=== PATIENT | female | born 1960 | race Caucasian/White ===

== ENCOUNTER 2017-02-03 14:45 | Emergency (ER) | payer MEDICARE, MEDICAID ==
--- NOTE | 2017-02-03 15:08 | EDM.PDOC ---
ED HPI GI/ABDOMINAL - General Chief Complaint: Abdominal Pain Stated Complaint: VOMITTING, HEADACHE Time Seen by Provider: 02/03/17 14:45 Source: Reports: Patient History Limitations: Reports: Physical impairment - History of Present Illness INITIAL COMMENTS - FREE TEXT/NARRATIVE: 56 y.o.w.f. with a h/o DM, Maryam daily 2009, obesity, came to the ed because she "does not feel well" and has intermittent left lower abd. pain. She feels nauseated as well intermittently. No trauma, no blood in stool, has occ a dry cough. No F/C. Pt stated she "tries to walk daily". Symptom Onset Date: 02/02/17 Symptom Onset Time: 16:00 Timing/Duration: Reports: Day(s):, Intermittent Location: LLQ Quality: Reports: ache, stabbing, throbbing Severity: moderate Improves with: Reports: lying down Worsens with: Reports: sitting up Associated Symptoms (-Female): Reports: nausea/vomiting - Related Data Allergies/ADRs: Allergies Allergy/AdvReac Type Severity Reaction Status Date / Time hydrocodone Allergy Hives Verified 02/03/17 15:04 Penicillins Allergy Hives Verified 02/03/17 15:04 Sulfa (Sulfonamide Allergy Edema Verified 02/03/17 15:04 Antibiotics) TAPE Allergy Rash Uncoded 02/03/17 15:04 Home Meds: Home Meds Cyanocobalamin (Vitamin B12) [Vitamin B12] 500 mcg PO DAILY 08/11/13 [History] DULoxetine [Cymbalta] 120 mg PO DAILY 08/11/13 [History] FA/Lycopene/Lut/MV,Ca,Iron,Min [Centrum] 1 tab PO DAILY 08/11/13 [History] Gabapentin 800 mg PO DAILY 08/11/13 [History] Omeprazole 20 mg PO DAILY 08/11/13 [History] Cholecalciferol (Vitamin D3) [Vitamin D3] 5,000 unit PO DAILY 07/07/14 [History] Ciprofloxacin/Ciprofloxa HCl [Ciprofloxacin ER] 500 mg PO BID #20 tab 02/03/17 [ Rx] Dicyclomine [Bentyl] 10 mg PO QID PRN #16 cap 02/03/17 [Rx] Ondansetron [Zofran ODT] 4 mg PO Q6H PRN #20 tab 02/03/17 [Rx] Social & Family History - Tobacco Use Smoking Status *Q: Current Every Day Smoker Years of Tobacco use: 35 - Alcohol Use Days Per Week of Alcohol Use: 0 - Recreational Drug Use Recreational Drug Use: No ED ROS GENERAL - Review of Systems Review Of Systems: See Below Constitutional: Reports: decreased appetite HEENT: Reports: No symptoms Respiratory: Reports: Cough Cardiovascular: Reports: No symptoms Endocrine: Reports: no symptoms GI/Abdominal: Reports: Abdominal pain (LLQ) : Reports: no symptoms Musculoskeletal: Reports: no symptoms Skin: Reports: no symptoms Neurological: Reports: No Symptoms Psychiatric: Reports: No symptoms Hematologic/Lymphatic: Reports: no symptoms Immunologic: Reports: no symptoms ED EXAM, GI/ABD - Physical Exam Exam: See Below Exam Limited By: Physical impairment General Appearance: alert, WD/WN, moderate distress, obese Eyes: bilateral: normal appearance Ears: normal external exam Nose: normal inspection Throat/Mouth: Normal inspection, Normal lips, Normal oropharynx, Normal voice, No airway compromise Head: atraumatic, normocephalic Neck: normal inspection, supple, non-tender, full range of motion Respiratory/Chest: no accessory muscle use, chest non-tender, rhonchi Cardiovascular: normal peripheral pulses, regular rate, rhythm GI/Abdominal: hypoactive bowel sounds, tenderness (LLQ ) (Female) Exam: Deferred Rectal (Female) Exam: Deferred Back Exam: normal inspection, decreased range of motion, paraspinal tenderness ( chronic low back pain) Extremities: other (chronic lymphedema Rishabh, R > then left) Neurological: alert, oriented, CN II-XII intact, normal cognition Psychiatric: normal affect, normal mood Skin Exam: Warm, Dry, Intact Lymphatic: no adenopathy Course - Vital Signs Text/Narrative:: 56 y.o.w.f. with a h/o DM, Maryam tug 2009, obesity, came to the ed because she "does not feel well" and has intermittent left lower abd. pain. She feels nauseated as well intermittently. No trauma, no blood in stool, has occ a dry cough. No F/C. Pt stated she "tries to walk daily". PE: Morbid obese, Rishabh lympedema, Rhonchi LLL of lung, tender LLQ of abdomen. Labs. WBC 13L UA neg Imaging: abd/pelvis: Diverticulosis, opacity LLL of lung Impression: Diverticulosis, opacity LLL of lung Tx: Zofran, Dilaudid, Cipro (opacity). Reexam: Improved Plan: D/C home with instructions. Last Recorded V/S: Last Vital Signs Temp 37.3 C 02/03/17 18:22 Pulse 95 02/03/17 18:22 Resp 16 02/03/17 18:22 BP 122/66 02/03/17 18:22 Pulse Ox 95 02/03/17 18:22 - Orders/Labs/Meds Orders: Active Orders 24 hr Category Date Time Status Abdomen Pelvis w Cont [CT] Stat Exams 02/03/17 16:11 Taken Chest 2V [CR] Stat Exams 02/03/17 14:52 Taken Labs: Laboratory Tests 02/03/17 02/03/17 02/03/17 Range/Units 15:05 15:05 15:05 WBC 13.4 H (4.5-12.0) X10-3/uL RBC 5.09 (3.23-5.20) x10(6)uL Hgb 15.2 (11.5-15.5) g/dL Hct 45.5 (30.0-51.3) % MCV 89.2 (80-96) fL MCH 29.9 (27.7-33.6) pg MCHC 33.5 (32.2-35.4) g/dL RDW 12.6 (11.5-15.5) % Plt Count 235 (125-369) X10(3)uL MPV 8.4 (7.4-10.4) fL Add Manual Diff Yes Neutrophils % (Manual) 89 H (46-82) % Band Neutrophils % 2 (0-6) % Lymphocytes % (Manual) 7 L (13-37) % Monocytes % (Manual) 2 L (4-12) % Sodium 135 (135-145) mmol/L Potassium 4.1 (3.5-5.3) mmol/L Chloride 103 (100-110) mmol/L Carbon Dioxide 23 (23-29) mmol/L BUN 11 (5-20) mg/dL Creatinine 0.6 (0.6-1.3) mg/dL Est Cr Clr Drug Dosing 92.56 mL/min Estimated GFR (MDRD) > 60 (>60) BUN/Creatinine Ratio 18.3 (9-20) Glucose 115 (80-116) mg/dL Hemoglobin A1c (4.0-6.0) % Lactic Acid 2.2 (0.5-2.2) mmol/L Calcium 8.6 (8.6-10.2) mg/dL Total Bilirubin (0.1-1.3) mg/dL Direct Bilirubin (0.1-0.2) mg/dL AST (5-27) IU/L ALT (14-26) IU/L Alkaline Phosphatase (56-112) IU/L B-Natriuretic Peptide (0-100) pg/mL Total Protein (6.0-8.0) g/dL Albumin (3.5-5.2) g/dL Amylase (28-100) U/L Urine Color (YELLOW) Urine Appearance (CLEAR) Urine pH (5.0-6.5) Ur Specific Mcroberts (1.010-1.025) Urine Protein (NEGATIVE) mg/dL Urine Glucose (UA) (NEGATIVE) mg/dL Urine Ketones (NEGATIVE) mg/dL Urine Occult Blood (NEGATIVE) Urine Nitrite (NEGATIVE) Urine Bilirubin (NEGATIVE) Urine Urobilinogen (NEGATIVE) mg/dL Ur Leukocyte Esterase (NEGATIVE) Urine RBC (0) Urine WBC (0) Ur Squamous Epith Cells (NS,R,O) Other Crystals (NS) Urine Bacteria (NS) 02/03/17 02/03/17 02/03/17 Range/Units 15:05 15:05 15:05 WBC (4.5-12.0) X10-3/uL RBC (3.23-5.20) x10(6)uL Hgb (11.5-15.5) g/dL Hct (30.0-51.3) % MCV (80-96) fL MCH (27.7-33.6) pg MCHC (32.2-35.4) g/dL RDW (11.5-15.5) % Plt Count (125-369) X10(3)uL MPV (7.4-10.4) fL Add Manual Diff Neutrophils % (Manual) (46-82) % Band Neutrophils % (0-6) % Lymphocytes % (Manual) (13-37) % Monocytes % (Manual) (4-12) % Sodium (135-145) mmol/L Potassium (3.5-5.3) mmol/L Chloride (100-110) mmol/L Carbon Dioxide (23-29) mmol/L BUN (5-20) mg/dL Creatinine (0.6-1.3) mg/dL Est Cr Clr Drug Dosing mL/min Estimated GFR (MDRD) (>60) BUN/Creatinine Ratio (9-20) Glucose (80-116) mg/dL Hemoglobin A1c 5.6 (4.0-6.0) % Lactic Acid (0.5-2.2) mmol/L Calcium (8.6-10.2) mg/dL Total Bilirubin 1.3 (0.1-1.3) mg/dL Direct Bilirubin 0.2 (0.1-0.2) mg/dL AST 26 (5-27) IU/L ALT 20 (14-26) IU/L Alkaline Phosphatase 121 H (56-112) IU/L B-Natriuretic Peptide 48 (0-100) pg/mL Total Protein 7.1 (6.0-8.0) g/dL Albumin 3.6 (3.5-5.2) g/dL Amylase 56 (28-100) U/L Urine Color (YELLOW) Urine Appearance (CLEAR) Urine pH (5.0-6.5) Ur Specific Mcroberts (1.010-1.025) Urine Protein (NEGATIVE) mg/dL Urine Glucose (UA) (NEGATIVE) mg/dL Urine Ketones (NEGATIVE) mg/dL Urine Occult Blood (NEGATIVE) Urine Nitrite (NEGATIVE) Urine Bilirubin (NEGATIVE) Urine Urobilinogen (NEGATIVE) mg/dL Ur Leukocyte Esterase (NEGATIVE) Urine RBC (0) Urine WBC (0) Ur Squamous Epith Cells (NS,R,O) Other Crystals (NS) Urine Bacteria (NS) 02/03/17 Range/Units 15:28 WBC (4.5-12.0) X10-3/uL RBC (3.23-5.20) x10(6)uL Hgb (11.5-15.5) g/dL Hct (30.0-51.3) % MCV (80-96) fL MCH (27.7-33.6) pg MCHC (32.2-35.4) g/dL RDW (11.5-15.5) % Plt Count (125-369) X10(3)uL MPV (7.4-10.4) fL Add Manual Diff Neutrophils % (Manual) (46-82) % Band Neutrophils % (0-6) % Lymphocytes % (Manual) (13-37) % Monocytes % (Manual) (4-12) % Sodium (135-145) mmol/L Potassium (3.5-5.3) mmol/L Chloride (100-110) mmol/L Carbon Dioxide (23-29) mmol/L BUN (5-20) mg/dL Creatinine (0.6-1.3) mg/dL Est Cr Clr Drug Dosing mL/min Estimated GFR (MDRD) (>60) BUN/Creatinine Ratio (9-20) Glucose (80-116) mg/dL Hemoglobin A1c (4.0-6.0) % Lactic Acid (0.5-2.2) mmol/L Calcium (8.6-10.2) mg/dL Total Bilirubin (0.1-1.3) mg/dL Direct Bilirubin (0.1-0.2) mg/dL AST (5-27) IU/L ALT (14-26) IU/L Alkaline Phosphatase (56-112) IU/L B-Natriuretic Peptide (0-100) pg/mL Total Protein (6.0-8.0) g/dL Albumin (3.5-5.2) g/dL Amylase (28-100) U/L Urine Color Yellow (YELLOW) Urine Appearance Clear (CLEAR) Urine pH 6.0 (5.0-6.5) Ur Specific Mcroberts 1.020 (1.010-1.025) Urine Protein Negative (NEGATIVE) mg/dL Urine Glucose (UA) Normal (NEGATIVE) mg/dL Urine Ketones Negative (NEGATIVE) mg/dL Urine Occult Blood Negative (NEGATIVE) Urine Nitrite Negative (NEGATIVE) Urine Bilirubin Negative (NEGATIVE) Urine Urobilinogen Normal (NEGATIVE) mg/dL Ur Leukocyte Esterase Negative (NEGATIVE) Urine RBC Not seen (0) Urine WBC 0-5 (0) Ur Squamous Epith Cells Moderate H (NS,R,O) Other Crystals Moderate H (NS) Urine Bacteria Few H (NS) Meds: Medications Discontinued Medications Generic Name Dose Route Start Last Admin Trade Name Freq PRN Reason Stop Dose Admin Ciprofloxacin 500 mg 02/03/17 18:28 02/03/17 18:52 Ciprofloxacin Hcl PO 02/03/17 18:29 500 mg ONETIME ONE Administration Dicyclomine HCl Confirm 02/03/17 18:37 02/03/17 18:54 Bentyl Administered 02/03/17 18:38 Not Given Dose 10 mg .ROUTE .STK-MED ONE Dicyclomine HCl 10 mg 02/03/17 18:52 02/03/17 18:54 Bentyl PO 02/03/17 18:53 10 mg ONETIME ONE Administration Hydromorphone HCl 1 mg 02/03/17 16:29 02/03/17 16:52 Dilaudid IVPUSH 02/03/17 16:30 1 mg ONETIME ONE Administration Iopamidol 100 ml 02/03/17 16:22 02/03/17 17:13 Isovue-370 (76%) IV 02/03/17 16:23 100 ml . DIRECTED ONE Administration Ondansetron HCl 8 mg 02/03/17 16:29 02/03/17 16:52 Zofran IVPUSH 02/03/17 16:30 8 mg ONETIME ONE Administration Departure - Departure Time of Disposition: 18:18 Disposition: Home, Self-Care 01 Condition: good Clinical Impression: Opacity of lung on imaging study Diverticula of colon Qualifiers: Diverticulosis bleeding: diverticulosis without bleeding Qualified Code(s): K57.30 - Diverticulosis of large intestine without perforation or abscess without bleeding Prescriptions: Ciprofloxacin/Ciprofloxa HCl [Ciprofloxacin ER] 500 mg PO BID #20 tab Dicyclomine [Bentyl] 10 mg PO QID PRN #16 cap PRN Reason: abdominal spasm Ondansetron [Zofran ODT] 4 mg PO Q6H PRN #20 tab PRN Reason: Nausea Referrals: Chaz Mcdowell MD [Primary Care Provider] - Forms: ED Department Discharge Additional Instructions: Please take the meds as recommended, please f/u in next 3 days, please come back to the ed iof your symptoms get worse acutely. - My Orders Last 24 Hours: My Active Orders 02/03/17 14:52 Chest 2V [CR] Stat 02/03/17 16:11 Abdomen Pelvis w Cont [CT] Stat - Assessment/Plan Last 24 Hours: My Active Orders 02/03/17 14:52 Chest 2V [CR] Stat 02/03/17 16:11 Abdomen Pelvis w Cont [CT] Stat
[2017-02-03] MEDS ORDERED: Iopamidol 755 Mg/ML 100 ML Bottle IV ONE (16:22)
[2017-02-03] MEDS ORDERED: Ondansetron 4 MG/2 ML SDV IVPUSH ONE (16:29)
[2017-02-03] MEDS ORDERED: HYDROmorphone 2 MG/ML SDV IVPUSH ONE (16:29)
[2017-02-03 18:23] VITALS: BP 122/66
[2017-02-03] MEDS ORDERED: Ciprofloxacin 500 MG Tab PO ONE (18:28)
[2017-02-03] MEDS ORDERED: Ondansetron 4 MG Tab.DIS PO ONE (18:34)
[2017-02-03] MEDS ORDERED: Dicyclomine 10 MG Cap ONE (18:37)
[2017-02-03] MEDS ORDERED: Dicyclomine 10 MG Cap PO ONE (18:52)
--- NOTE | 2017-02-05 10:54 | CR ---
INDICATION: Cough and fever. CHEST: PA and lateral views of the chest were obtained 02/03/2017. The heart appeared enlarged in the area of the left ventricle. The aorta is calcified in the arch area slightly. Bridging hyperostotic changes are noted in the mid thoracic spine. Heavy markings are noted, most likely on the basis of pulmonary fibrosis, although unusual - interstitial pneumonia cannot be excluded. However, no consolidating pneumonia or effusion was identified. No definite evidence of CHF is identified. IMPRESSION: 1. ASHD with LVE 2. Exogenous obesity. 3. Probable pulmonary fibrosis, although cannot entirely exclude unusual pneumonia with interstitial inflammation. MTDD
== END 2017-02-03 18:55 | disposition home or self-care (01) ==
LOC: FB.ED 14:45
DX: K57.30 Diverticulosis of large intestine without perforation or abscess without bleeding (principal); R91.8 Other nonspecific abnormal finding of lung field; F17.200 Nicotine dependence, unspecified, uncomplicated; Z88.0 Allergy status to penicillin; Z88.2 Allergy status to sulfonamides; Z79.899 Other long term (current) drug therapy; Z88.5 Allergy status to narcotic agent; Z91.09 Other allergy status, other than to drugs and biological substances
CPT/HCPCS: 36415; 71020; 74177; 80048; 80076; 81001; 82150; 83036; 83605; 83880; 85025; 96374; 96375; 99284; A9270; J1170; J2405; Q9967

== ENCOUNTER 2017-06-10 12:51 | Emergency (ER) | payer MEDICARE, MEDICAID ==
[2017-06-10 13:14] VITALS: BP 148/84
--- NOTE | 2017-06-10 13:54 | EDM.PDOC ---
ED HPI GENERAL MEDICAL PROBLEM - General Chief Complaint: Lower Extremity Injury/Pain Stated Complaint: hip and leg pain Time Seen by Provider: 06/10/17 13:30 Source of Information: Reports: Patient, Old Records History Limitations: Reports: No Limitations - History of Present Illness INITIAL COMMENTS - FREE TEXT/NARRATIVE: Ankita comes in with a pain R hip and a known PMH of OA affecting the R hip. This has been studied radiographically, and an orthopedic referral was discussed. She is currently taking Toradol for pain, and is requesting an opioid. She is also taking Duloxitene and Gabapentin for chronic back pain and neuropathy. Treatments CV RN: Reports: Acetaminophen Right Hip Pain Score (Numeric/FACES): 10 - Related Data Allergies Allergy/AdvReac Type Severity Reaction Status Date / Time acetaminophen [From Percocet] Allergy Other Verified 06/10/17 13:29 hydrocodone Allergy Hives Verified 06/10/17 13:29 oxycodone [From Percocet] Allergy Other Verified 06/10/17 13:29 Penicillins Allergy Hives Verified 06/10/17 13:29 Sulfa (Sulfonamide Allergy Edema Verified 06/10/17 13:29 Antibiotics) TAPE Allergy Rash Uncoded 06/10/17 13:29 Home Meds: Home Meds Cyanocobalamin (Vitamin B12) [Vitamin B12] 500 mcg PO DAILY 08/11/13 [History] DULoxetine [Cymbalta] 120 mg PO DAILY 08/11/13 [History] FA/Lycopene/Lut/MV,Ca,Iron,Min [Centrum] 1 tab PO DAILY 08/11/13 [History] Gabapentin 800 mg PO DAILY 08/11/13 [History] Omeprazole 20 mg PO DAILY 08/11/13 [History] Cholecalciferol (Vitamin D3) [Vitamin D3] 5,000 unit PO DAILY 07/07/14 [History] Dicyclomine [Bentyl] 10 mg PO QID PRN #16 cap 02/03/17 [Rx] Ondansetron [Zofran ODT] 4 mg PO Q6H PRN #20 tab 02/03/17 [Rx] Past Medical History Cardiovascular History: Reports: Heart Failure Respiratory History: Reports: Pneumonia, Recurrent, Sleep Apnea, SOB Gastrointestinal History: Reports: GERD Genitourinary History: Reports: Renal Calculus MANAGER RADIATION History: Reports: Musculoskeletal History: Reports: Arthritis, Fracture Neurological History: Reports: Neuropathy, Peripheral Endocrine/Metabolic History: Reports: Obesity/BMI 30+, Vitamin D Deficiency Hematologic History: Reports: B12 Deficiency - Past Surgical History HEENT Surgical History: Reports: Tonsillectomy GI Surgical History: Reports: Bariatric Procedure, Cholecystectomy, Hernia, Abdominal Social & Family History - Family History Family Medical History: Noncontributory - Tobacco Use Smoking Status *Q: Current Every Day Smoker Years of Tobacco use: 35 Packs/Tins Daily: 1 Second Hand Smoke Exposure: Yes - Caffeine Use Caffeine Use: Reports: Soda - Alcohol Use Days Per Week of Alcohol Use: 0 - Recreational Drug Use Recreational Drug Use: No Review of Systems - Review of Systems Review Of Systems: ROS reveals no pertinent complaints other than HPI. ED EXAM, GENERAL - Physical Exam Exam: See Below Exam Limited By: No Limitations General Appearance: Alert, WD/WN, No Apparent Distress, Anxious Head: Normocephalic Neck: Normal Inspection Respiratory/Chest: Lungs Clear Cardiovascular: Regular Rate, Rhythm Back Exam: Normal Inspection Extremities: Pedal Edema, Limited Range of Motion (R hip) Neurological: Alert, Oriented, CN II-XII Intact Psychiatric: Normal Affect, Anxious Skin Exam: Warm, Dry Lymphatic: No Adenopathy Course - Vital Signs Text/Narrative:: Ankita remained stable at the [facility] ED. No meds were administered. Last Recorded V/S: Last Vital Signs Temp 36.7 C 06/10/17 12:55 Pulse 70 06/10/17 12:55 Resp 16 06/10/17 12:55 BP 148/84 H 06/10/17 12:55 Pulse Ox 100 06/10/17 12:55 Departure - Departure Time of Disposition: 13:53 Disposition: Home, Self-Care 01 Condition: Fair Clinical Impression: Osteoarthritis of right hip Qualifiers: Osteoarthritis type: primary Qualified Code(s): M16.11 - Unilateral primary osteoarthritis, right hip - Discharge Information Referrals: Chaz Mcdowell MD [Primary Care Provider] - - Problem List & Annotations (1) Osteoarthritis of right hip SNOMED Code(s): 661347392089034 Code(s): M16.11 - UNILATERAL PRIMARY OSTEOARTHRITIS, RIGHT HIP Status: Acute Current Visit: Yes Annotation/Comment:: Ankita has chronic OA of the R hip, and would benefit from an orthopedic consultation. She was advised to continue the Toradol, and to contact PCP regarding a referral. No meds dispensed. Qualifiers: Osteoarthritis type: primary Qualified Code(s): M16.11 - Unilateral primary osteoarthritis, right hip - Problem List Review Problem List Initiated/Reviewed/Updated: Yes - Assessment/Plan Plan: Follow up with PCP.
== END 2017-06-10 13:56 | disposition home or self-care (01) ==
LOC: FB.ED 12:51
DX: M16.11 Unilateral primary osteoarthritis, right hip (principal); I50.9 Heart failure, unspecified; K21.9 Gastro-esophageal reflux disease without esophagitis; F17.210 Nicotine dependence, cigarettes, uncomplicated; E66.9 Obesity, unspecified; Z88.0 Allergy status to penicillin; Z88.1 Allergy status to other antibiotic agents; Z88.2 Allergy status to sulfonamides; Z88.8 Allergy status to other drugs, medicaments and biological substances; Z79.899 Other long term (current) drug therapy; Z87.01 Personal history of pneumonia (recurrent); Z90.89 Acquired absence of other organs; Z90.49 Acquired absence of other specified parts of digestive tract; Z98.84 Bariatric surgery status; Z68.41 Body mass index [BMI] 40.0-44.9, adult
CPT/HCPCS: 99282

== ENCOUNTER 2018-01-04 06:39 | Inpatient (IN) | payer MEDICARE, MEDICAID ==
[~2018-01-04 06:39] MED LIST: Lactated Ringers 1,000 ML IV SCH
[2018-01-04] MEDS ORDERED: Scopolamine 1.5 MG Transdermal Patch TRDERM PRN (07:30)
[2018-01-04] MEDS ORDERED: Acetaminophen 500 MG Tab PO ONE (07:30)
[2018-01-04] MEDS ORDERED: Scopolamine 1.5 MG Transdermal Patch TRDERM ONE (07:30)
[2018-01-04] MEDS ORDERED: Gabapentin 300 MG Cap PO ONE (07:30)
[2018-01-04] MEDS ORDERED: Ropivacaine 49.25 ML, Ketorolac 30 MG, EPINEPHrine 0.5 MG, cloNIDine 80 MCG, Sodium Chl... INJECT SCH ×5 (07:30)
[2018-01-04] MEDS ORDERED: Clindamycin in 0.9 % Sod Chlor 600 MG/50 ML BAG IV ONE (07:45)
[2018-01-04] MEDS ORDERED: Linezolid 600 MG in Premix Bag 1 BAG IV ONE (08:00)
[2018-01-04] MEDS ORDERED: Midazolam 1 MG/ML 2 ML SDV IV ONE (08:30)
[2018-01-04] MEDS ORDERED: ePHEDrine 50 MG/ML SDV IV ONE (08:30)
[2018-01-04] MEDS ORDERED: Ketorolac 30 MG/ML SDV IVPUSH ONE (08:30)
[2018-01-04] MEDS ORDERED: Ketamine 500 mg/10 ML MDV IV ONE (08:30)
[2018-01-04] MEDS ORDERED: Lactated Ringers 1,000 ML IV ONE (08:30)
[2018-01-04] MEDS ORDERED: Ondansetron 4 MG/2 ML SDV IVPUSH ONE (08:30)
[2018-01-04] MEDS ORDERED: Phenylephrine 1% 10 MG/ML SDV IV ONE (08:30)
[2018-01-04] MEDS ORDERED: Tranexamic Acid 1,000 MG in Sodium Chloride 0.9% 50 ML IV ONE (08:30)
[2018-01-04] MEDS ORDERED: Propofol 200 MG/20 ML SDV IV ONE (08:30)
[2018-01-04] MEDS ORDERED: Morphine PF 10 MG/10 ML SDV EPIDUR ONE (08:30)
[2018-01-04] MEDS ORDERED: Dexamethasone 4 MG/ML 5 ML MDV IVPUSH ONE (08:30)
[2018-01-04] MEDS ORDERED: fentaNYL 100 MCG/2 ML SDV IV ONE (08:30)
[2018-01-04] MEDS ORDERED: VANCOMYCIN 500 MG ONE (10:23)
[2018-01-04] MEDS ORDERED: Docusate Sodium 100 MG Cap PO PRN (11:02)
[2018-01-04] MEDS ORDERED: Ondansetron 4 MG/2 ML SDV IVPUSH PRN ×2 (11:02→12:31)
[2018-01-04] MEDS ORDERED: Sennosides 8.6 MG Tab PO PRN (11:02)
[2018-01-04] MEDS ORDERED: diphenhydrAMINE 50 MG/ML SDV IVPUSH PRN (11:02)
[2018-01-04] MEDS ORDERED: Zolpidem 5 MG Tab PO PRN (11:02)
[2018-01-04] MEDS ORDERED: Magnesium Hydroxide 400 MG/5 ML Susp 30 ML Cup PO PRN (11:02)
[2018-01-04] MEDS ORDERED: Naloxone 0.4 MG/ML SDV IVPUSH PRN ×2 (11:02→12:31)
[2018-01-04] MEDS ORDERED: UREA TOP PRN (11:05)
[2018-01-04] MEDS ORDERED: HYDROcodone/Ibuprofen 7.5-200 MG Tab PO PRN (11:09)
[2018-01-04] MEDS ORDERED: Acetaminophen 1,000 MG in Premix Bag 1 BAG IV SCH (11:15)
[2018-01-04] MEDS ORDERED: diphenhydrAMINE 50 MG/ML SDV IV PRN (12:31)
[2018-01-04] MEDS ORDERED: Ketorolac 15 MG/ML SDV IVPUSH PRN (12:31)
[2018-01-04] MEDS ORDERED: Morphine 2 MG/ML Syringe IVPUSH PRN (12:31)
[2018-01-04] MEDS ORDERED: Nalbuphine 10 MG/1 ML Vial IVPUSH PRN (12:31)
[2018-01-04] MEDS: Sodium Chloride 0.9% 10 ML Syringe FLUSH PRN ×3 (13:30→21:20)
--- NOTE | 2018-01-04 14:01 | CR ---
INDICATION: Postop. PELVIS: A single supine portable view of the pelvis was obtained, including a portion of the pelvis and definitely including the entire right hip area and proximal right femur. The total hip arthroplasty is apparently in good position and alignment, without evidence of a definite complicating process. USAMAD
[2018-01-04] MEDS: Ketorolac 30 MG/ML SDV IVPUSH SCH (19:01)
[2018-01-04] MEDS: Silver Sulfadiazine 1% Crm 50 GM Tube TOP SCH (21:00)
--- NOTE | 2018-01-05 00:34 | OR ---
DATE OF OPERATION: 01/04/2018 SURGEON: Omar Mike DO PREOPERATIVE DIAGNOSIS: Right hip primary osteoarthritis. POSTOPERATIVE DIAGNOSIS: Right hip primary osteoarthritis. PROCEDURE: Right hip total hip arthroplasty. ANESTHESIA: Spinal plus conscious sedation. FLUIDS: Lactated ringer solution. ESTIMATED BLOOD LOSS: 1000 mL. COMPLICATIONS: None. SPECIMENS: None. DISCHARGE DISPOSITION: Stable to PACU. HISTORY AND INDICATIONS FOR THE PROCEDURE: The patient was seen preoperatively by myself in the clinic. She had also seen another surgeon who wanted her to work on weight control and smoking cessation, which she had been doing. She has pain in the right hip. Preoperative imaging confirmed the above-mentioned diagnosis. Risks and benefits of the procedure were explained to the patient. Informed consent was obtained. DETAILS OF THE PROCEDURE: The patient was seen preoperatively by myself and the Anesthesia staff in the preoperative holding area where the operative site was marked. She was brought to the operative suite by the Anesthesia staff where spinal anesthesia was administered plus conscious sedation. She was placed into a left lateral recumbent position on a peg board. All extremities were found to be well padded and axillary roll had been placed. The right lower extremity was prepped and draped in a standard manner. Time-out was called identifying the correct patient, the correct procedure, the correct site, and antibiotics had been given within an appropriate period of time. An incision was made approximately 7 cm proximal to greater trochanter along just distal to the level of the left trochanter, carried down to the deep fascia. Bleeding was controlled with Bovie electrocautery during the case. I used Gelpi for initial retraction. I then incised the iliotibial band with a Bovie and then mobilized the iliotibial band and placed a Charnley for retraction. I then used a Bovie electrocautery unit to go along from the level of the lesser trochanter up into the level of the greater trochanter leaving a periarticular cuff. I then divided the capsule along the femoral neck with Bovie electrocautery and used a Young to mobilize it. I then went over the level of the acetabular rib with the Bovie. We then externally rotated the hip to put it on tension and then I made my initial femoral neck cut. I then used a cork screw to remove the femoral neck and head. After this had been accomplished, we measured the femoral head at 46 and then I made another cut about 1 cm proximal to the lesser trochanter. After this had been performed, I then cleared more soft tissue along the greater trochanter. I then used a gill box fixer just medial to lateral to the greater trochanter. I then used a canal finder, a rasp, and a lateralizing reamer to make sure they were lateral enough. I then sequentially reamed up to a #7. I then sequentially broached from 5 to 7, the 7 did seem a bit proud, so I went back with a 6. I then focused on acetabular preparation by placing sharp Hohmann at 5 and 7 o'clock and placing the stem at 10 at the superior margin of the acetabular rib. I removed the labrum using a deep 10 blade. I then used a 42 to good end of the medial wall after removing soft tissue with a large curette. I then sequentially reamed up to a 47 and then trialed with a 48 cup. This provided excellent stability. I then irrigated and placed my final 48 cup and then placed two 20 mm screws and then placed the liner and confirmed it was in good position and stable. I then placed my final 6 stem with standard offset and trialed with a +5. This provided excellent stability as well as good leg length bilaterally. I then inserted my final head after irrigating and this provided excellent stability throughout range of motion without dislocating. I then irrigated again, placed a small amount of vancomycin inside the capsule, and then closed the capsule and gluteus medius and gluteus minimus with a running #5 Ethibond sutures. I then irrigated again and placed a small amount of vancomycin and then closed the iliotibial band with running #2 Stratafix followed by deep and superficial closure with #2 Stratafix followed by subcutaneous closure with 3-0 Vicryl pops followed by Prineo followed by sterile dressing. The patient was then transferred to our hospital bed. She had a sterile Rodrigues catheter bag in place and then she was transferred to the PACU in stable condition. /[id number] ESCOBAR/KAYLA
[2018-01-05] MEDS: Ketorolac 30 MG/ML SDV IVPUSH SCH (03:09)
[2018-01-05] MEDS: Sodium Chloride 0.9% 10 ML Syringe FLUSH PRN ×8 (03:10→18:45)
[2018-01-05] MEDS: Morphine 2 MG/ML Syringe IVPUSH PRN ×5 (06:54→18:06)
[2018-01-05] MEDS: traMADol 50 MG Tab PO PRN ×3 (07:49→19:52)
[2018-01-05] MEDS ORDERED: hydrOXYzine HCl 25 MG Tab PO ONE (09:35)
[2018-01-05] MEDS ORDERED: hydrOXYzine HCl 25 MG Tab PO PRN (09:42)
[2018-01-05] MEDS: DULoxetine 60 MG Cap PO SCH (09:54)
[2018-01-05] MEDS: Gabapentin 400 MG Cap PO SCH (09:54)
[2018-01-05] MEDS: Aspirin 325 MG Tab.EC PO SCH (09:54)
--- NOTE | 2018-01-05 09:54 | PCM.DCSUM1 ---
Discharge Summary - Hospital Course Brief History: The patient was seen preoperatively in the clinic. She is a patient of Dr. Mcdowell. She had been suffering with bilateral hip pain for some time with right being worse than the left. Reoperative imaging confirmed right hip primary osteoarthritis. Risks and benefits of right total hip arthroplasty were explained to the patient and informed cells obtained. The procedure was performed on 01/04/2018. She is Postoperatively for physical therapy, pain control, DVT prophylaxis. She participated well. She had normal postoperative pain. 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 She received 2 postoperative doses. She received intraoperative vancomycin powder within the wound. - Discharge Data Discharge Disposition: Home, Self-Care 01 Condition: Good - Patient Summary/Data Operative Procedure(s) Performed: Right total hip arthroplasty. Complications: none Consults: Consultations 01/04/18 11:02 Consult to Physician [CONS] Routine Consulting Provider: Beto De Paz Call Completed to Consulting Physician: No Reason for Consult: med management OT Evaluation and Treatment [CONS] Routine Please Evaluate and Treat. OT Reason for Consult: Strengthening This query below is only for informational purposes and is not editable. Admission Diagnosis/Problem: Total replacement of hip PT Evaluation and Treatment [CONS] Routine Please Evaluate and Treat. PT Reason for Consult: Strengthening This query below is only for informational purposes and is not editable. Admission Diagnosis/Problem: Total replacement of hip Respiratory Care Assess and Treatment [CONS] Routine Comment: Physician Instructions: Post-op Pneumonia Prevention - Patient Instructions Diet: Usual Diet as Tolerated Activity: Apply Ice, As Tolerated, No Strenuous Activities Driving: Do Not Drive Showering/Bathing: May Shower Wound/Incision Care: Keep Operative Site/Wound Site Clean and Dry Notify Provider of: Fever, Increased Pain, Swelling and Redness, Drainage, Nausea and/or Vomiting - Discharge Plan Prescriptions/Med Rec: hydrOXYzine HCl [hydrOXYzine] 25 mg PO Q8HR #90 tablet Aspirin [Ecotrin] 325 mg PO DAILY #30 tab.ec traMADol [Ultram] 100 mg PO Q6H PRN #240 tablet PRN Reason: MODERATE Pain Home Medications: Home Meds Cyanocobalamin (Vitamin B12) [Vitamin B12] 500 mcg PO DAILY 08/11/13 [History] DULoxetine [Cymbalta] 120 mg PO DAILY 08/11/13 [History] FA/Lycopene/Lut/MV,Ca,Iron,Min [Centrum] 1 tab PO DAILY 08/11/13 [History] Gabapentin 800 mg PO DAILY 08/11/13 [History] Omeprazole 20 mg PO DAILY 08/11/13 [History] Cholecalciferol (Vitamin D3) [Vitamin D3] 2,000 unit PO DAILY 07/07/14 [History] Dicyclomine [Bentyl] 10 mg PO QID PRN #16 cap 02/03/17 [Rx] Ondansetron [Zofran ODT] 4 mg PO Q6H PRN #20 tab 02/03/17 [Rx] Acetaminophen/HYDROcodone [[place] 325-5 MG] 1 - 2 tab PO Q6H PRN 01/03/18 [ History] Naproxen [Naprosyn] 500 mg PO Q12HR 01/03/18 [History] Silver Sulfadiazine [Silvadene 1% Cream 20 GM] 1 applic TOP BID 01/03/18 [ History] Urea [Urea 20% Crm] 1 applic TOP ASDIRECTED PRN 01/03/18 [History] Aspirin [Ecotrin] 325 mg PO DAILY #30 tab.ec 01/05/18 [Rx] Varenicline [Chantix] 1 mg PO DAILY PRN #0 01/05/18 [Rx] hydrOXYzine HCl [hydrOXYzine] 25 mg PO Q8HR #90 tablet 01/05/18 [Rx] traMADol [Ultram] 100 mg PO Q6H PRN #240 tablet 01/05/18 [Rx] Patient Handouts: Total Hip Replacement, Care After - General Info Functional Status: Reports: Pain Controlled, Tolerating Diet, Ambulating - Review of Systems General: Reports: No Symptoms HEENT: Reports: No Symptoms Pulmonary: Reports: No Symptoms Cardiovascular: Reports: No Symptoms Gastrointestinal: Reports: No Symptoms Genitourinary: Reports: No Symptoms Musculoskeletal: Reports: Leg Pain, Joint Pain Skin: Reports: No Symptoms Neurological: Reports: No Symptoms Psychiatric: Reports: No Symptoms - Patient Data Vitals - Most Recent: Last Vital Signs Temp 97.6 F 01/05/18 04:00 Pulse 66 01/05/18 05:52 Resp 16 01/05/18 04:00 BP 98/50 L 01/05/18 04:00 Pulse Ox 94 L 01/05/18 04:00 Weight - Most Recent: 253 lb I&O - Last 24 hours: Intake & Output 01/04/18 01/05/18 01/05/18 22:59 06:59 14:59 Intake Total 800 500 Output Total 375 0 Balance 425 500 Lab Results - Last 24 hrs: Laboratory Results - last 24 hr 01/04/18 01/05/18 01/05/18 Range/Units 10:20 06:05 06:05 WBC 9.1 (4.5-12.0) X10-3/uL RBC 3.79 (3.23-5.20) x10(6)uL Hgb 12.3 11.9 (11.5-15.5) g/dL Hct 36.6 34.9 (30.0-51.3) % MCV 92.1 (80-96) fL MCH 31.4 (27.7-33.6) pg MCHC 34.1 (32.2-35.4) g/dL RDW 13.1 (11.5-15.5) % Plt Count 222 (125-369) X10(3)uL MPV 8.7 (7.4-10.4) fL Neut % (Auto) 73.3 (46-82) % Lymph % (Auto) 18.6 (13-37) % Tompkins % (Auto) 7.6 (4-12) % Eos % (Auto) 0 L (1.0-5.0) % Baso % (Auto) 0 (0-2) % Neut # (Auto) 6.7 (1.6-8.3) # Lymph # (Auto) 1.7 (0.6-5.0) # Tompkins # (Auto) 0.7 (0.0-1.3) # Eos # (Auto) 0.0 (0.0-0.8) # Baso # (Auto) 0.0 (0.0-0.2) # Sodium 139 (135-145) mmol/L Potassium 5.0 (3.5-5.3) mmol/L Chloride 104 (100-110) mmol/L Carbon Dioxide 28 (21-32) mmol/L BUN 25 H (7-18) mg/dL Creatinine 0.7 (0.55-1.02) mg/dL Est Cr Clr Drug Dosing 78.41 mL/min Estimated GFR (MDRD) > 60 (>60) BUN/Creatinine Ratio 35.7 H (9-20) Glucose 96 (80-116) mg/dL Calcium 8.4 L (8.6-10.2) mg/dL Total Bilirubin 0.8 (0.1-1.3) mg/dL AST 84 H (5-25) IU/L ALT 124 H (12-36) U/L Alkaline Phosphatase 113 H (56-112) IU/L Total Protein 5.5 L (6.0-8.0) g/dL Albumin 2.6 L (3.5-5.2) g/dL Globulin 2.9 g/dL Albumin/Globulin Ratio 0.9 Med Orders - Current: Current Medications Aspirin (Ecotrin) 325 mg PO DAILY [facility] Bisacodyl (Dulcolax) 10 mg PO DAILY PRN PRN Reason: Constipation Ropivacaine 49.25 ml/Ketorolac Tromethamine 30 mg/Epinephrine HCl 0.5 mg/ Clonidine HCl 80 mcg/ Sodium Chloride 48.45 ml 0 ml INJECT ASDIRECTED [facility] Last Admin: 01/04/18 10:24 Dose: 100 syringe Diazepam (Valium) 5 mg IVPUSH Q6H PRN PRN Reason: Spasms Diphenhydramine HCl (Benadryl) 25 mg IVPUSH Q4H PRN PRN Reason: Itching Last Admin: 01/04/18 13:45 Dose: 25 mg Docusate Sodium (Colace) 100 mg PO BID PRN PRN Reason: Constipation Duloxetine HCl (Cymbalta) 120 mg PO DAILY [facility] Gabapentin (Neurontin) 800 mg PO DAILY [facility] Hydroxyzine HCl (Atarax) 25 mg PO ONETIME PRN PRN Reason: ITCHING Lactated Ringer's (Ringers, Lactated) 1,000 mls @ 125 mls/hr IV ASDIRECTED [facility] Last Admin: 01/04/18 07:54 Dose: 125 mls/hr Ketorolac Tromethamine (Toradol) 30 mg IVPUSH Q8H PRN PRN Reason: Pain Stop: 01/09/18 03:01 Magnesium Hydroxide (Milk Of Magnesia) 30 ml PO BID PRN PRN Reason: Constipation Melatonin (Melatonin) 5 mg PO BEDTIME PRN PRN Reason: Sleep Morphine Sulfate (Morphine) 2 mg IVPUSH Q2H PRN PRN Reason: SEVERE PAIN Last Admin: 01/05/18 06:54 Dose: 2 mg Naloxone HCl (Narcan) 0.1 mg IVPUSH ONETIME PRN PRN Reason: Oversedation Ondansetron HCl (Zofran) 8 mg IVPUSH Q4H PRN PRN Reason: Nausea/Vomiting Senna (Senna) 8.6 mg PO BID PRN PRN Reason: Constipation Silver Sulfadiazine (Silvadene 1% Cream 50 Gm) 0 gm TOP BID RAKEL Last Admin: 01/04/18 21:00 Dose: Not Given Sodium Chloride (Saline Flush) 10 ml FLUSH ASDIRECTED PRN PRN Reason: Keep Vein Open Last Admin: 01/05/18 06:54 Dose: 10 ml Sodium Chloride (Saline Flush) 10 ml FLUSH DAILY [facility] Tramadol HCl (Ultram) 100 mg PO Q6H PRN PRN Reason: MODERATE Pain Last Admin: 01/05/18 07:49 Dose: 100 mg Varenicline (Chantix) 1 mg PO DAILY [facility] Zolpidem Tartrate (Ambien) 5 mg PO BEDTIME PRN PRN Reason: Sleep Discontinued Medications Acetaminophen (Tylenol Extra Strength) 1,000 mg PO ONETIME ONE Stop: 01/04/18 07:31 Last Admin: 01/04/18 07:45 Dose: 1,000 mg Gabapentin (Neurontin) 300 mg PO ONETIME ONE Stop: 01/04/18 07:31 Last Admin: 01/04/18 07:45 Dose: 300 mg Hydroxyzine HCl (Atarax) 25 mg PO ONETIME ONE Stop: 01/05/18 09:36 Clindamycin in 0.9 % Sod Chlor (Cleocin In Ns) 600 mg in 50 mls @ 138.889 mls/ hr IV ONETIME ONE Stop: 01/04/18 08:06 Tigecycline 100 mg/ Sodium (Chloride) 100 mls @ 200 mls/hr IV ONETIME ONE Stop: 01/04/18 09:14 Last Admin: 01/04/18 08:39 Dose: 200 mls/hr Acetaminophen 1,000 mg/ Premix 100 mls @ 400 mls/hr IV Q6H [facility] Stop: 01/05/18 05:29 Tigecycline 50 mg/ Sodium (Chloride) 100 mls @ 200 mls/hr IV Q12H RAKEL Stop: 01/05/18 09:29 Last Admin: 01/04/18 20:45 Dose: 200 mls/hr Ketorolac Tromethamine (Toradol) 30 mg IVPUSH Q8H RAKEL Stop: 01/05/18 03:01 Last Admin: 01/05/18 03:09 Dose: 30 mg Nalbuphine HCl (Nubain) 10 mg IVPUSH Q1H PRN PRN Reason: Pruritus Stop: 01/05/18 08:00 Oxycodone HCl (Oxycodone) 10 mg PO Q4H PRN PRN Reason: Pain Scopolamine (Transderm-Scop) 1.5 mg TRDERM ONETIME ONE Stop: 01/04/18 07:31 Last Admin: 01/04/18 08:34 Dose: 1.5 mg Vancomycin HCl (Vancocin) 1,000 mg .XX .STK-MED ONE Stop: 01/04/18 10:24 Last Admin: 01/04/18 10:23 Dose: 1,000 mg - Exam General: Reports: Alert, Oriented HEENT: Reports: Pupils Reactive, Mucous Membr. Moist/[place] Neck: Reports: Supple Lungs: Reports: Normal Respiratory Effort Extremities: No Pedal Edema, Normal Capillary Refill, Leg Pain, Limited Range of Motion Skin: Reports: Warm, Dry, Intact Wound/Incisions: Reports: Healing Well, Dressing Dry and Intact, No Drainage Psy/Mental Status: Reports: Alert, Normal Affect, Normal Mood Discharge Operative/Procedures - Procedures Performed Operations: right damion
[2018-01-05] MEDS: Silver Sulfadiazine 1% Crm 50 GM Tube TOP SCH (09:55)
[2018-01-05] MEDS: Sodium Chloride 0.9% 10 ML Syringe FLUSH SCH (10:04)
[2018-01-05] MEDS ORDERED: Ketorolac 30 MG/ML SDV ONE (13:07)
[2018-01-05] MEDS: HYDROcodone/Ibuprofen 7.5-200 MG Tab PO PRN ×2 (18:44→23:04)
[2018-01-06] MEDS: traMADol 50 MG Tab PO PRN ×4 (02:19→21:37)
[2018-01-06] MEDS: Sodium Chloride 0.9% 10 ML Syringe FLUSH PRN (02:24)
[2018-01-06] MEDS ORDERED: Ketorolac 30 MG/ML SDV IVPUSH PRN (03:00)
[2018-01-06] MEDS: HYDROcodone/Ibuprofen 7.5-200 MG Tab PO PRN ×5 (04:22→22:33)
[2018-01-06] MEDS: Aspirin 325 MG Tab.EC PO SCH (08:39)
[2018-01-06] MEDS: Sodium Chloride 0.9% 10 ML Syringe FLUSH SCH (10:09)
[2018-01-06] MEDS: Gabapentin 400 MG Cap PO SCH ×2 (10:17→20:39)
[2018-01-06] MEDS: DULoxetine 60 MG Cap PO SCH ×2 (10:17→20:39)
[2018-01-06] MEDS: Bisacodyl 5 MG Tab PO PRN (20:44)
[2018-01-07] MEDS: HYDROcodone/Ibuprofen 7.5-200 MG Tab PO PRN ×4 (02:26→22:41)
[2018-01-07] MEDS: traMADol 50 MG Tab PO PRN ×3 (04:08→20:33)
--- NOTE | 2018-01-07 09:29 | PN ---
DATE SEEN: 01/06/2018 SUBJECTIVE: Ankita Guerin is a 57-year-old female seen for postoperative care. Dr. Omar Mike is the provider of record, Orthopedics, surgical date 01/04/2018. Doing well. Ambulating with good success. Pain intermittently problematic but reasonably well controlled. There have been no fevers, chills, sweats, or discharge of consequence. LABORATORY STUDIES: On 01/06/2018, white count 8400, hemoglobin 12.9, hematocrit 37.8, normal indices. Electrolytes satisfactory. GFR greater than 60, mildly elevated liver enzymes. PHYSICAL EXAMINATION: Right lateral thigh surgical wound inspected without complicating factors. ASSESSMENT: Postoperative care, total hip arthroplasty. PLAN: Analgesics discussed, timing appropriate, ambulation as indicated. Expect stay today or tomorrow accordingly. /[id number] MORENA/KAYLA
[2018-01-07] MEDS: Aspirin 325 MG Tab.EC PO SCH (09:45)
[2018-01-07] MEDS: Sodium Chloride 0.9% 10 ML Syringe FLUSH SCH ×2 (09:45→21:57)
--- NOTE | 2018-01-07 09:47 | PN ---
DATE SEEN: 01/07/2018 SUBJECTIVE: Ankita Guerin is a 57-year-old female, undergoing postoperative care. Underwent right total hip arthroplasty. Doing well. Slow to ambulate. The pain appears to be reasonably controlled with gabapentin and Vicoprofen. Ambulation is improving. PT more actively involved. LABORATORY STUDIES: 01/07/2018; white count 7700 and hemoglobin 11.4. Mildly elevated liver enzymes. Bilirubin 1.4. AST 33, ALT 68, and alkaline phosphatase 124. OBJECTIVE: Vital signs are stable. Wound without conflict. ASSESSMENT: 1. Postoperative care, right total hip arthroplasty. 2. Elevated liver enzymes. PLAN: We will take a peek at an ultrasound to look because of persistently elevated liver enzymes, complementary care and well being. /[id number] MORENA/KAYLA
[2018-01-07] MEDS: DULoxetine 60 MG Cap PO SCH (20:26)
[2018-01-07] MEDS: Gabapentin 400 MG Cap PO SCH (20:26)
[2018-01-07] MEDS: Bisacodyl 5 MG Tab PO PRN (20:35)
[2018-01-08] MEDS: HYDROcodone/Ibuprofen 7.5-200 MG Tab PO PRN ×3 (03:10→13:32)
[2018-01-08] MEDS: traMADol 50 MG Tab PO PRN (06:18)
[2018-01-08] MEDS: Aspirin 325 MG Tab.EC PO SCH (09:41)
[2018-01-08] MEDS: Sodium Chloride 0.9% 10 ML Syringe FLUSH SCH (11:25)
--- NOTE | 2018-01-08 13:04 | DISCH ---
DISCHARGE DATE: 01/08/2018 DISCHARGE DIAGNOSIS: Right total hip arthroplasty. HOSPITAL COURSE: Ankita Guerin is a 57-year-old female who underwent right total hip arthroplasty on 01/04/2018. Dr. Omar Mike, orthopedic provider of record. Operative course was without complication. Postoperatively, hemoglobin remained stable at 12.3, to a low of 11.1. White count was satisfactory electrolytes were without conflict. Persistently elevated liver enzymes, AST, ALT, and alkaline phosphatase. Ultrasound reveals some cirrhotic changes and previous cholecystectomy. No malignancy of consequence. Postoperative care was without complicating issues, ambulation improved. Pain was controlled. At the time of discharge, she was independent with walker. Home situation was comfortable. Home Health will be provided accordingly. DISCHARGE MEDICATIONS: Please see med recon list. SURGICAL PROCEDURE: 01/04/2018, right total hip arthroplasty. /[id number] MORENA/KAYLA
--- NOTE | 2018-01-08 15:18 | US ---
INDICATION: Elevated liver enzymes. RIGHT UPPER QUADRANT ULTRASOUND: Multiple ultrasonic images were obtained 01/08. No comparison ultrasound was available. However, there was comparison CT of the abdomen dated 05/01/2017. The gallbladder is absent compatible with history of its removal. There is an appearance of a duplex collecting system at the right kidney, which measures 11.3 x 4.9 x 5.3 cm and was otherwise unremarkable. The liver appears to be slightly echogenic and slightly prominent in size, measuring 16.2 cm. Fatty infiltration is suggested, but should be correlated clinically. The common bile duct was normal in caliber at 6.7 mm in this post cholecystectomy patient. The pancreas was not visualized adequately due to a large amount of intestinal gas. The IVC was slightly phasic. The aorta was not evaluated. IMPRESSION: 1. Probable fatty infiltration of the liver with slight enlargement. 2. Pancreas not adequately visualized due to intestinal gas. 3. Right upper quadrant ultrasound otherwise unremarkable, except to note post cholecystectomy status. [facility]
[2018-01-08 17:30] VITALS: BP 125/65
== END 2018-01-08 14:30 | disposition home or self-care (01) | DRG 470 ==
LOC: FB.MS 06:39
PROVIDERS: ADMIT Orthopaedic Surgery; ATTEND Orthopaedic Surgery
PROC: 0SR90JZ Replacement of Right Hip Joint with Synthetic Substitute, Open Approach (ICD-10-PCS; principal; 2018-01-04)
PROC: 3E0U029 Introduction of Other Anti-infective into Joints, Open Approach (ICD-10-PCS; 2018-01-04)
DX: M16.11 Unilateral primary osteoarthritis, right hip (principal); Z68.41 Body mass index [BMI] 40.0-44.9, adult; L89.529 Pressure ulcer of left ankle, unspecified stage; G62.9 Polyneuropathy, unspecified; N23 Unspecified renal colic; L91.9 Hypertrophic disorder of the skin, unspecified; D31.31 Benign neoplasm of right choroid; K57.90 Diverticulosis of intestine, part unspecified, without perforation or abscess without bleeding; I25.10 Atherosclerotic heart disease of native coronary artery without angina pectoris; I50.9 Heart failure, unspecified; M79.7 Fibromyalgia; K21.9 Gastro-esophageal reflux disease without esophagitis; E66.01 Morbid (severe) obesity due to excess calories; G47.30 Sleep apnea, unspecified; I89.0 Lymphedema, not elsewhere classified; F17.210 Nicotine dependence, cigarettes, uncomplicated; R74.8 Abnormal levels of other serum enzymes; Z91.19 Patient's noncompliance with other medical treatment and regimen; Z79.899 Other long term (current) drug therapy; Z79.891 Long term (current) use of opiate analgesic; Z90.49 Acquired absence of other specified parts of digestive tract; Z98.84 Bariatric surgery status; Z87.442 Personal history of urinary calculi; Z86.14 Personal history of Methicillin resistant Staphylococcus aureus infection; Z98.891 History of uterine scar from previous surgery; Z88.5 Allergy status to narcotic agent; Z88.0 Allergy status to penicillin; Z88.2 Allergy status to sulfonamides; Z88.8 Allergy status to other drugs, medicaments and biological substances
CPT/HCPCS: 36415; 72170; 76705; 80053; 85014; 85018; 85025; 86850; 86900; 86901; 87070; 87077; 87186; 94150; 97110-GP; 97116-GP; 97161-GP; 97165-GO; 97530-GO; 97535-GO; A9270-GY; J0171; J0735; J1100; J1200; J1885; J2250; J2270; J2370; J2405; J2704; J2795; J3010; J3243; J3360; J3370; J7030; J7050; J7120

== ENCOUNTER 2018-01-14 21:13 | Emergency (ER) | payer MEDICARE, MEDICAID ==
[2018-01-14] MEDS ORDERED: Ketorolac 60 MG/2 ML SDV IM ONE (21:24)
--- NOTE | 2018-01-14 22:38 | EDM.PDOC ---
ED HPI GENERAL MEDICAL PROBLEM - General Chief Complaint: Upper Extremity Injury/Pain Stated Complaint: FALL/RT SIDE PAIN Time Seen by Provider: 01/14/18 21:21 Source of Information: Reports: Patient, Family History Limitations: Reports: No Limitations - History of Present Illness INITIAL COMMENTS - FREE TEXT/NARRATIVE: 57 y.o.w.f came to the ed after she fell onto her right shoulder and right hip while slipping on ICE, Pt has pain in her right shoulder and right hip, especially when she tries to move her right hip and right elbow. No N/V/D no Dizziness or any other acute medical issues. BP 132/65 RR 18 Temp 36.7 Pulse ox 98% on RA Pulse 85 Onset Date: 01/14/18 Onset Time: 20:00 Duration: Hour(s): Location: Reports: Upper Extremity, Right, Lower Extremity, Right Quality: Reports: Ache, Burning, Dull, Pressure Severity: Mild Improves with: Reports: Rest Worsens with: Reports: Movement Context: Reports: Trauma Right Arm Pain Score (Numeric/FACES): 9 - Related Data Allergies Allergy/AdvReac Type Severity Reaction Status Date / Time acetaminophen [From Percocet] Allergy Other Verified 01/14/18 21:20 oxycodone [From Percocet] Allergy Other Verified 01/14/18 21:20 Penicillins Allergy Hives Verified 01/14/18 21:20 Sulfa (Sulfonamide Allergy Edema Verified 01/14/18 21:20 Antibiotics) TAPE Allergy Rash Uncoded 01/14/18 21:20 Home Meds: Home Meds Cyanocobalamin (Vitamin B12) [Vitamin B12] 500 mcg PO DAILY 08/11/13 [History] DULoxetine [Cymbalta] 120 mg PO BEDTIME 08/11/13 [History] FA/Lycopene/Lut/MV,Ca,Iron,Min [Centrum] 1 tab PO DAILY 08/11/13 [History] Gabapentin 800 mg PO BEDTIME 08/11/13 [History] Omeprazole 20 mg PO DAILY 08/11/13 [History] Cholecalciferol (Vitamin D3) [Vitamin D3] 2,000 unit PO DAILY 07/07/14 [History] Dicyclomine [Bentyl] 10 mg PO QID PRN #16 cap 02/03/17 [Rx] Ondansetron [Zofran ODT] 4 mg PO Q6H PRN #20 tab 02/03/17 [Rx] Acetaminophen/HYDROcodone [[place] 325-5 MG] 1 - 2 tab PO Q6H PRN 01/03/18 [ History] Naproxen [Naprosyn] 500 mg PO Q12HR 01/03/18 [History] Aspirin [Ecotrin] 325 mg PO DAILY #30 tab.ec 01/05/18 [Rx] hydrOXYzine HCl [hydrOXYzine] 25 mg PO Q8HR #90 tablet 01/05/18 [Rx] traMADol [Ultram] 100 mg PO Q6H PRN #240 tablet 01/05/18 [Rx] Varenicline [Chantix] 1 mg PO BID 01/06/18 [History] HYDROcodone/Ibuprofen [Vicoprofen] 1 tab PO Q4H PRN #40 tablet 01/08/18 [Rx] Varenicline [Chantix] 1 mg PO BID #60 tablet 01/08/18 [Rx] Past Medical History HEENT History: Reports: Glaucoma Cardiovascular History: Reports: Heart Failure Other Cardiovascular History: arteriosclerotic heart disease/ lymphedema both legs Respiratory History: Reports: Pneumonia, Recurrent, Sleep Apnea, SOB Gastrointestinal History: Reports: GERD Genitourinary History: Reports: Renal Calculus [employer] History: Reports: Musculoskeletal History: Reports: Arthritis, Fracture Neurological History: Reports: Neuropathy, Peripheral Psychiatric History: Reports: Depression Endocrine/Metabolic History: Reports: Obesity/BMI 30+, Vitamin D Deficiency Hematologic History: Reports: B12 Deficiency Dermatologic History: Reports: Decubitus Ulcer - Infectious Disease History Infectious Disease History: Reports: MRSA, VRE - Past Surgical History HEENT Surgical History: Reports: Tonsillectomy GI Surgical History: Reports: Bariatric Procedure, Cholecystectomy, Hernia, Abdominal Female Surgical History: Reports: Section, Cystoscopy, Lithotripsy/ ESWL, Tubal Ligation, Ureteral Stent Social & Family History - Family History Family Medical History: Noncontributory - Tobacco Use Smoking Status *Q: Former Smoker Years of Tobacco use: 30 Packs/Tins Daily: 0.5 Used Tobacco, but Quit: Yes Month/Year Tobacco Last Used: quit december 2017 Second Hand Smoke Exposure: Yes - Caffeine Use Caffeine Use: Reports: Soda - Alcohol Use Days Per Week of Alcohol Use: 0 - Recreational Drug Use Recreational Drug Use: No Review of Systems - Review of Systems Review Of Systems: See Below Constitutional: Reports: No Symptoms Eyes: Reports: No Symptoms Ears: Reports: No Symptoms Nose: Reports: No Symptoms Mouth/Throat: Reports: No Symptoms Respiratory: Reports: No Symptoms Cardiovascular: Reports: No Symptoms GI/Abdominal: Reports: No Symptoms Genitourinary: Reports: No Symptoms Musculoskeletal: Reports: Shoulder Pain, Leg Pain, Muscle Pain Skin: Reports: Bruising (RIGHT UPPER ARM) Neurological: Reports: No Symptoms Psychiatric: Reports: No Symptoms ED EXAM, GENERAL - Physical Exam Exam: See Below Exam Limited By: No Limitations General Appearance: Alert, WD/WN, Mild Distress, Obese Eye Exam: Bilateral Eye: Normal Inspection Ears: Normal External Exam Ear Exam: Bilateral Ear: Auricle Normal Nose: Normal Inspection, Normal Mucosa Throat/Mouth: Normal Inspection, Normal Lips Head: Atraumatic, Normocephalic Neck: Normal Inspection, Supple, Non-Tender, Full Range of Motion Respiratory/Chest: No Respiratory Distress, Lungs Clear, Normal Breath Sounds Cardiovascular: Normal Peripheral Pulses, Regular Rate, Rhythm, No Edema, No Gallop Peripheral Pulses: 1+: Brachial (R) GI/Abdominal: Normal Bowel Sounds, Soft, Non-Tender (Female) Exam: Deferred Rectal (Female) Exam: Deferred Back Exam: Normal Inspection, Full Range of Motion Extremities: Normal Inspection, Limited Range of Motion (of right hip nd right shoulder) Neurological: Alert, Oriented, CN II-XII Intact, Abnormal Gait (due to right hip pain) Psychiatric: Normal Affect, Normal Mood Skin Exam: Rash (bruis right upper arm) Lymphatic: No Adenopathy Course - Vital Signs Text/Narrative:: 57 y.o.w.f came to the ed after she fell onto her right shoulder and right hip while slipping on ICE, Pt has pain in her right shoulder and right hip, especially when she tries to move her right hip and right elbow. No N/V/D no Dizziness or any other acute medical issues. BP 132/65 RR 18 Temp 36.7 Pulse ox 98% on RA Pulse 85 57 y.o.w.f s/p Right hip replacement came to the ED after she fell onto her right hip and elbow, unable to ambulate due to pain. Imaging: XRay of right shoulder and right hip: NAD Impression: Right shoulder and right hip sprain, Tx: Toradol, Ice Reexam: improved Plan: D/C with instructions Last Recorded V/S: Last Vital Signs Temp 36.8 C 01/14/18 21:21 Pulse 77 01/14/18 22:50 Resp 16 01/14/18 21:21 BP 135/73 01/14/18 22:50 Pulse Ox 100 01/14/18 21:21 - Orders/Labs/Meds Orders: Active Orders 24 hr Category Date Time Status Hip Min 1V w Pelvis Rt [CR] Stat Exams 01/14/18 21:25 Taken Shoulder 1V Rt [CR] Stat Exams 01/14/18 21:25 Taken Meds: Medications Discontinued Medications Generic Name Dose Route Start Last Admin Trade Name Delfino PRN Reason Stop Dose Admin Ketorolac Tromethamine 60 mg 01/14/18 21:24 01/14/18 21:28 Toradol IM 01/14/18 21:25 60 mg ONETIME ONE Administration Departure - Departure Time of Disposition: 22:36 Disposition: Home, Self-Care 01 Condition: Good Clinical Impression: Sprain of right hip Qualifiers: Encounter type: initial encounter Qualified Code(s): S73.101A - Unspecified sprain of right hip, initial encounter Sprain of shoulder, right Qualifiers: Encounter type: initial encounter - Discharge Information Referrals: Chaz Mcdowell MD [Primary Care Provider] - Forms: ED Department Discharge Additional Instructions: ICE, rest, elevation, cont your current meds, please follow u, come back if your symptoms get worse acutely. - My Orders Last 24 Hours: My Active Orders 01/14/18 21:25 Hip Min 1V w Pelvis Rt [CR] Stat Shoulder 1V Rt [CR] Stat - Assessment/Plan Last 24 Hours: My Active Orders 01/14/18 21:25 Hip Min 1V w Pelvis Rt [CR] Stat Shoulder 1V Rt [CR] Stat
[2018-01-14 22:52] VITALS: BP 135/73
--- NOTE | 2018-01-15 11:33 | CR ---
INDICATION: Fell out of bed. Surgery 01/05/2018. PELVIS WITH RIGHT HIP: Frontal view of the pelvis, with frontal and lateral views of the right hip, were obtained 01/14/2018 and were compared with 2017. The total hip arthroplasty on the right remains in good position and alignment, without evidence of a complicating process, including no evidence of a fracture or dislocation. Moderate osteoarthritic change is noted at the left hip joint with moderate narrowing of the hip joint space cranial laterally. IMPRESSION: 1. No acute fracture or dislocation. 2. ALISON appears intact on the right. 3. Osteoarthritis left hip joint. [facility]
--- NOTE | 2018-01-15 11:35 | CR ---
INDICATION: Trauma. Fell out of bed. RIGHT SHOULDER: A single supine view of the right shoulder was obtained and revealed no definite evidence of fracture or dislocation. There does appear to be some mild degenerative change at the AC and glenohumeral joints. Adjacent ribs appear to be intact. MTDD
== END 2018-01-14 22:50 | disposition home or self-care (01) ==
LOC: FB.ED 21:13
DX: S43.401A Unspecified sprain of right shoulder joint, initial encounter (principal); S73.101A Unspecified sprain of right hip, initial encounter; Z88.6 Allergy status to analgesic agent; Z88.5 Allergy status to narcotic agent; Z88.0 Allergy status to penicillin; Z88.2 Allergy status to sulfonamides; Z91.048 Other nonmedicinal substance allergy status; Z79.899 Other long term (current) drug therapy; Z79.82 Long term (current) use of aspirin; Z87.891 Personal history of nicotine dependence; W00.9XXA Unspecified fall due to ice and snow, initial encounter
CPT/HCPCS: 73020; 73501; 96372; 99283; J1885

== ENCOUNTER 2019-11-11 16:55 | Emergency (ER) | payer MEDICARE, MEDICAID ==
[2019-11-11 17:16] VITALS: BP 127/64; PULSE 66
[2019-11-11] MEDS ORDERED: traMADol 50 MG Tab PO ONE (17:29)
--- NOTE | 2019-11-11 17:46 | EDM.PDOC ---
ED HPI GENERAL MEDICAL PROBLEM - General Chief Complaint: Abdominal Pain Stated Complaint: ABD PAIN, BOTH ARMS SORE Time Seen by Provider: 11/11/19 17:15 Source of Information: Reports: Patient History Limitations: Reports: No Limitations - History of Present Illness INITIAL COMMENTS - FREE TEXT/NARRATIVE: states she fell about 6am today at home, tripped on rug landed with her right arm folded across her upper abdomen . hit forehead on table . but did not loose consciousness has pain in the right forearm , no deformity , no swelling , pain also noted in the lateral right humerus also has significant pain in the lower ribs on the left, pain is worse with movement and taking a deep breath or coughing Onset: Today Onset Date: 11/11/19 Onset Time: 06:20 Duration: Getting Worse Location: Reports: Chest Quality: Reports: Ache, Dull Severity: Moderate Improves with: Reports: Heat Therapy Worsens with: Reports: Cold Therapy, Movement Context: Reports: Activity Associated Symptoms: Reports: Chest Pain upper abdomen Pain Score (Numeric/FACES): 10 - Related Data Allergies Allergy/AdvReac Type Severity Reaction Status Date / Time acetaminophen [From Percocet] Allergy Other Verified 01/14/18 21:20 oxycodone [From Percocet] Allergy Other Verified 01/14/18 21:20 Penicillins Allergy Hives Verified 01/14/18 21:20 Sulfa (Sulfonamide Allergy Edema Verified 01/14/18 21:20 Antibiotics) TAPE Allergy Rash Uncoded 01/14/18 21:20 Home Meds: Home Meds Cyanocobalamin (Vitamin B12) [Vitamin B12] 500 mcg PO DAILY 08/11/13 [History] DULoxetine [Cymbalta] 120 mg PO BEDTIME 08/11/13 [History] FA/Lycopene/Lut/MV,Ca,Iron,Min [Centrum] 1 tab PO DAILY 08/11/13 [History] Gabapentin 800 mg PO BEDTIME 08/11/13 [History] Omeprazole 20 mg PO DAILY 08/11/13 [History] Cholecalciferol (Vitamin D3) [Vitamin D3] 2,000 unit PO DAILY 07/07/14 [History] Dicyclomine [Bentyl] 10 mg PO QID PRN #16 cap 02/03/17 [Rx] Ondansetron [Zofran ODT] 4 mg PO Q6H PRN #20 tab 02/03/17 [Rx] Acetaminophen/HYDROcodone [[place] 325-5 MG] 1 - 2 tab PO Q6H PRN 01/03/18 [ History] Naproxen [Naprosyn] 500 mg PO Q12HR 01/03/18 [History] Aspirin [Ecotrin EC] 325 mg PO DAILY #30 tab.ec 01/05/18 [Rx] hydrOXYzine HCL [hydrOXYzine] 25 mg PO Q8HR #90 tablet 01/05/18 [Rx] traMADol [Ultram] 100 mg PO Q6H PRN #240 tablet 01/05/18 [Rx] Varenicline [Chantix] 1 mg PO BID 01/06/18 [History] HYDROcodone/Ibuprofen [Vicoprofen] 1 tab PO Q4H PRN #40 tablet 01/08/18 [Rx] Varenicline [Chantix] 1 mg PO BID #60 tablet 01/08/18 [Rx] traMADol [Ultram] 50 mg PO Q4H PRN #10 tab 11/11/19 [Rx] Past Medical History HEENT History: Reports: Glaucoma Cardiovascular History: Reports: Heart Failure Other Cardiovascular History: arteriosclerotic heart disease/ lymphedema both legs Respiratory History: Reports: Pneumonia, Recurrent, Sleep Apnea, SOB Gastrointestinal History: Reports: Diverticulosis, GERD Genitourinary History: Reports: Renal Calculus 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: Musculoskeletal History: Reports: Arthritis, Fracture, Other (See Below) Other Musculoskeletal History: bone spurs Neurological History: Reports: Neuropathy, Peripheral Psychiatric History: Reports: Depression Endocrine/Metabolic History: Reports: Obesity/BMI 30+, Vitamin D Deficiency Hematologic History: Reports: B12 Deficiency Dermatologic History: Reports: Decubitus Ulcer - Infectious Disease History Infectious Disease History: Reports: MRSA, VRE - Past Surgical History HEENT Surgical History: Reports: Tonsillectomy GI Surgical History: Reports: Bariatric Procedure, Cholecystectomy, Hernia, Abdominal Female Surgical History: Reports: Section, Cystoscopy, Lithotripsy/ ESWL, Tubal Ligation, Ureteral Stent Musculoskeletal Surgical History: Reports: Hip Replacement, Other (See Below) Other Musculoskeletal Surgeries/Procedures:: right hip replacement Social & Family History - Family History Family Medical History: Noncontributory - Tobacco Use Smoking Status *Q: Current Every Day Smoker Years of Tobacco use: 40 Packs/Tins Daily: 1 - Caffeine Use Caffeine Use: Reports: Soda - Recreational Drug Use Recreational Drug Use: No ED ROS GENERAL - Review of Systems Review Of Systems: See Below Constitutional: Reports: No Symptoms HEENT: Reports: No Symptoms Respiratory: Reports: Other (chest wall pain) Cardiovascular: Reports: No Symptoms Endocrine: Reports: No Symptoms GI/Abdominal: Reports: No Symptoms Musculoskeletal: Reports: Shoulder Pain, Muscle Pain Skin: Reports: No Symptoms Neurological: Reports: No Symptoms Psychiatric: Reports: No Symptoms ED EXAM, GI/ABD - Physical Exam Exam: See Below Exam Limited By: No Limitations General Appearance: Alert, WD/WN Eyes: Bilateral: EOMI Ears: Normal External Exam Nose: Normal Inspection Throat/Mouth: Normal Oropharynx Head: Atraumatic, Normocephalic Neck: Supple, Non-Tender Respiratory/Chest: Lungs Clear, Other (cest wall tenderness on palpation) Cardiovascular: Regular Rate, Rhythm GI/Abdominal Exam: Soft, Non-Tender Back Exam: Full Range of Motion Extremities: Limited Range of Motion Neurological: Alert, Oriented Psychiatric: Normal Affect Skin Exam: Warm Course - Vital Signs Last Recorded V/S: Last Vital Signs Temp 36.6 C 11/11/19 16:55 Pulse 66 11/11/19 16:55 Resp 14 11/11/19 16:55 BP 127/64 11/11/19 16:55 Pulse Ox 98 11/11/19 16:55 - Orders/Labs/Meds Orders: Active Orders 24 hr Category Date Time Status Ribs 2V wo Chest Lt [CR] Stat Exams 11/11/19 17:28 Taken Meds: Medications Discontinued Medications Generic Name Dose Route Start Last Admin Trade Name Delfino PRN Reason Stop Dose Admin Tramadol HCl 50 mg 11/11/19 17:29 11/11/19 17:39 Ultram PO 11/11/19 17:30 50 mg ONETIME ONE Administration Departure - Departure Time of Disposition: 19:15 Disposition: Home, Self-Care 01 Condition: Good Clinical Impression: Contusion of rib on left side - Discharge Information *PRESCRIPTION DRUG MONITORING PROGRAM REVIEWED*: Not Applicable *COPY OF PRESCRIPTION DRUG MONITORING REPORT IN PATIENT ROBEL: Not Applicable Instructions: Contusion, [id number] Referrals: Chaz Mcdowell MD [Primary Care Provider] - Forms: ED Department Discharge Additional Instructions: Make follow up appt to see your PCP Sepsis Event Note - Evaluation Sepsis Screening Result: No Definite Risk - Focused Exam Vital Signs: Vital Signs Temp Pulse Resp BP Pulse Ox 11/11/19 16:55 36.6 C 66 14 127/64 98 Date Exam was Performed: 11/11/19 Time Exam was Performed: 19:13 - My Orders Last 24 Hours: My Active Orders 11/11/19 17:28 Ribs 2V wo Chest Lt [CR] Stat - Assessment/Plan Last 24 Hours: My Active Orders 11/11/19 17:28 Ribs 2V wo Chest Lt [CR] Stat
== END 2019-11-11 19:32 | disposition home or self-care (01) ==
LOC: FB.ED 16:55
DX: S20.212A Contusion of left front wall of thorax, initial encounter (principal); I50.9 Heart failure, unspecified; K21.9 Gastro-esophageal reflux disease without esophagitis; F32.9 Major depressive disorder, single episode, unspecified; F17.210 Nicotine dependence, cigarettes, uncomplicated; Z88.6 Allergy status to analgesic agent; Z88.8 Allergy status to other drugs, medicaments and biological substances; Z88.0 Allergy status to penicillin; Z88.2 Allergy status to sulfonamides; Z91.048 Other nonmedicinal substance allergy status; Z79.899 Other long term (current) drug therapy; Z68.41 Body mass index [BMI] 40.0-44.9, adult; Z79.82 Long term (current) use of aspirin; W01.190A Fall on same level from slipping, tripping and stumbling with subsequent striking against furniture, initial encounter
CPT/HCPCS: 71100; 99284; A9270

== ENCOUNTER 2020-04-20 18:35 | Emergency (ER) | payer MEDICARE, MEDICAID ==
--- NOTE | 2020-04-20 19:26 | EDM.PDOC ---
ED HPI GENERAL MEDICAL PROBLEM - General Chief Complaint: Skin Complaint Stated Complaint: SORES ON LEGS Time Seen by Provider: 04/20/20 18:55 Source of Information: Reports: Patient History Limitations: Reports: No Limitations - History of Present Illness INITIAL COMMENTS - FREE TEXT/NARRATIVE: c/o leg ulcer pt states she has an ulcer on her RLE x 2d, wants a nonstick dressing, PCP Dr Mcdowell no f/c/d has had low albumin in past last labs in [employer] from 2y ago does appear warm and red and c/w localized cellulitis, will obtain CBC/CMP/CRP culture left nares 01-05-18: MRSA. Resistent amox+clav/amp/amp+sulfb/cefazo/erythro/levo/moxiflox/oxacillin/pcn. Sensitive to ceftaroline/daptomycin/gent/rifampin/tet/tmp+smx/vanco. Right Lower Leg Pain Score (Numeric/FACES): 10 - Related Data Allergies Allergy/AdvReac Type Severity Reaction Status Date / Time acetaminophen [From Percocet] Allergy Other Verified 01/14/18 21:20 oxycodone [From Percocet] Allergy Other Verified 01/14/18 21:20 Penicillins Allergy Hives Verified 01/14/18 21:20 Sulfa (Sulfonamide Allergy Edema Verified 01/14/18 21:20 Antibiotics) TAPE Allergy Rash Uncoded 01/14/18 21:20 Home Meds: Home Meds Cyanocobalamin (Vitamin B12) [Vitamin B12] 500 mcg PO DAILY 08/11/13 [History] DULoxetine [Cymbalta] 120 mg PO BEDTIME 08/11/13 [History] FA/Lycopene/Lut/MV,Ca,Iron,Min [Centrum] 1 tab PO DAILY 08/11/13 [History] Gabapentin 800 mg PO BEDTIME 08/11/13 [History] Omeprazole 20 mg PO DAILY 08/11/13 [History] Cholecalciferol (Vitamin D3) [Vitamin D3] 2,000 unit PO DAILY 07/07/14 [History] Dicyclomine [Bentyl] 10 mg PO QID PRN #16 cap 02/03/17 [Rx] Ondansetron [Zofran ODT] 4 mg PO Q6H PRN #20 tab 02/03/17 [Rx] Naproxen [Naprosyn] 500 mg PO Q12HR 01/03/18 [History] traMADol [Ultram] 100 mg PO Q6H PRN #240 tablet 01/05/18 [Rx] Varenicline [Chantix] 1 mg PO BID #60 tablet 01/08/18 [Rx] Doxycycline [Vibra-Tabs] 100 mg PO BID #14 tablet 04/20/20 [Rx] Furosemide 20 mg PO DAILY #7 tablet 04/20/20 [Rx] Melatonin 3 mg PO BEDTIME 04/20/20 [History] Sulfamethoxazole/Trimethoprim [Bactrim Ds Tablet] 1 each PO BID #14 tablet 04/20/20 [Rx] methocarbamoL [Methocarbamol] 500 mg PO Q6HR 04/20/20 [History] traMADol [Ultram] 50 mg PO Q6HR 04/20/20 [History] Past Medical History HEENT History: Reports: Glaucoma Cardiovascular History: Reports: Heart Failure Other Cardiovascular History: arteriosclerotic heart disease/ lymphedema both legs Respiratory History: Reports: Pneumonia, Recurrent, Sleep Apnea, SOB Gastrointestinal History: Reports: Diverticulosis, GERD Genitourinary History: Reports: Renal Calculus 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: Musculoskeletal History: Reports: Arthritis, Fracture, Other (See Below) Other Musculoskeletal History: bone spurs Neurological History: Reports: Neuropathy, Peripheral Psychiatric History: Reports: Depression Endocrine/Metabolic History: Reports: Obesity/BMI 30+, Vitamin D Deficiency Hematologic History: Reports: B12 Deficiency Dermatologic History: Reports: Decubitus Ulcer - Infectious Disease History Infectious Disease History: Reports: MRSA, VRE - Past Surgical History HEENT Surgical History: Reports: Tonsillectomy GI Surgical History: Reports: Bariatric Procedure, Cholecystectomy, Hernia, Abdominal Female Surgical History: Reports: Section, Cystoscopy, Lithotripsy/ESWL, Tubal Ligation, Ureteral Stent Musculoskeletal Surgical History: Reports: Hip Replacement, Other (See Below) Other Musculoskeletal Surgeries/Procedures:: right hip replacement Social & Family History - Family History Family Medical History: Noncontributory - Tobacco Use Smoking Status *Q: Current Every Day Smoker Years of Tobacco use: 40 Packs/Tins Daily: 0.5 - Caffeine Use Caffeine Use: Reports: Soda - Recreational Drug Use Recreational Drug Use: No ED ROS GENERAL - Review of Systems Review Of Systems: See Below Constitutional: Reports: No Symptoms HEENT: Reports: No Symptoms Respiratory: Reports: No Symptoms Cardiovascular: Reports: No Symptoms Endocrine: Reports: No Symptoms GI/Abdominal: Reports: No Symptoms : Reports: No Symptoms Musculoskeletal: Reports: No Symptoms Skin: Reports: Wound, Change in Color Neurological: Reports: No Symptoms Psychiatric: Reports: No Symptoms Hematologic/Lymphatic: Reports: No Symptoms Immunologic: Reports: No Symptoms ED EXAM, SKIN/RASH Exam: See Below Exam Limited By: No Limitations General Appearance: Alert, WD/WN Ears: Normal External Exam, Normal Canal Nose: Normal Inspection, Normal Mucosa Throat/Mouth: Normal Inspection, Normal Voice, No Airway Compromise Respiratory/Chest: No Respiratory Distress, Lungs Clear Cardiovascular: Regular Rate, Rhythm Extremities: Other (b/l VSD with hyperpigmentation lower 1/2 pretib areas, skin intact on L, on R there is a superficial open area of ~15 x 5 cm with another 6- 7 cm of surrounding red and warm skin, oozing small amount serous fluid) Neurological: Alert, Oriented, CN II-XII Intact, No Motor/Sensory Deficits Skin: Warm, Dry, Other (as above) Course - Vital Signs Last Recorded V/S: Last Vital Signs Temp 36.8 C 04/20/20 19:12 Pulse 85 04/20/20 19:12 Resp 16 04/20/20 19:12 BP 156/83 H 04/20/20 19:12 Pulse Ox 97 04/20/20 19:12 - Orders/Labs/Meds Orders: Active Orders 24 hr Category Date Time Status Doxycycline [Vibra-Tabs] Med 04/20/20 20:17 Once 100 mg PO ONETIME ONE Furosemide [Lasix] Med 04/20/20 20:17 Once 20 mg PO ONETIME ONE Sulfamethoxazole/Trimethoprim [Septra DS] Med 04/20/20 20:17 Once 1 tab PO ONETIME ONE Labs: Laboratory Tests 04/20/20 04/20/20 04/20/20 Range/Units 19:10 19:10 19:10 WBC 8.6 (4.5-12.0) X10-3/uL RBC 4.76 (3.23-5.20) x10(6)uL Hgb 11.5 (11.5-15.5) g/dL Hct 37.3 (30.0-51.3) % MCV 78.3 L (80-96) fL MCH 24.2 L (27.7-33.6) pg MCHC 30.9 L (32.2-35.4) g/dL RDW 16.7 H (11.5-15.5) % Plt Count 334 (125-369) X10(3)uL MPV 7.8 (7.4-10.4) fL Neut % (Auto) 66.2 (46-82) % Lymph % (Auto) 23.4 (13-37) % Grimes % (Auto) 5.1 (4-12) % Eos % (Auto) 3 (1.0-5.0) % Baso % (Auto) 2 (0-2) % Neut # (Auto) 5.7 (1.6-8.3) # Lymph # (Auto) 2.0 (0.6-5.0) # Grimes # (Auto) 0.4 (0.0-1.3) # Eos # (Auto) 0.3 (0.0-0.8) # Baso # (Auto) 0.2 (0.0-0.2) # Sodium 140 (135-145) mmol/L Potassium 4.2 (3.5-5.3) mmol/L Chloride 105 (100-110) mmol/L Carbon Dioxide 30 (21-32) mmol/L BUN 14 (7-18) mg/dL Creatinine 0.7 (0.55-1.02) mg/dL Est Cr Clr Drug Dosing 76.57 mL/min Estimated GFR (MDRD) > 60 (>60) BUN/Creatinine Ratio 20.0 (9-20) Glucose 78 L (80-116) mg/dL Calcium 8.2 L (8.6-10.2) mg/dL Total Bilirubin 0.3 (0.1-1.3) mg/dL AST 16 D (5-25) IU/L ALT 21 D (12-36) U/L Alkaline Phosphatase 160 H (56-112) IU/L C-Reactive Protein 1.5 H (0.5-0.9) mg/dL Total Protein 6.6 (6.0-8.0) g/dL Albumin 2.9 L (3.5-5.2) g/dL Globulin 3.7 g/dL Albumin/Globulin Ratio 0.8 - Re-Assessments/Exams Free Text/Narrative Re-Assessment/Exam: 04/20/20 20:25 CRP 1.5 with no comparison other labs unremarkable will use duo coverage with doxy and tmp/smx DS to hopefully decrease the risk of developing resistance pt agrees to close f/u with PCP Dr Mcdowell says she will request a referral from Dr Mcdowell's office to wound clinic Departure - Departure Time of Disposition: 20:19 Disposition: Home, Self-Care 01 Condition: Good Clinical Impression: Venous stasis ulcer, Peripheral edema, Venous stasis of both lower extremities, Cellulitis of left lower extremity, Elevated C-reactive protein (CRP) - Discharge Information *PRESCRIPTION DRUG MONITORING PROGRAM REVIEWED*: Not Applicable *COPY OF PRESCRIPTION DRUG MONITORING REPORT IN PATIENT ROBEL: Not Applicable Prescriptions: Sulfamethoxazole/Trimethoprim [Bactrim Ds Tablet] 1 each PO BID #14 tablet Furosemide 20 mg PO DAILY #7 tablet Doxycycline [Vibra-Tabs] 100 mg PO BID #14 tablet Instructions: Peripheral Edema, Cellulitis, Adult Referrals: Chaz Mcdowell MD [Primary Care Provider] - Forms: ED Department Discharge Additional Instructions: For infection, take doxycyline 100 mg 1 tab 2 times a day for 7 days. For infection, take trimethoprim-sulfamethoxazole DS 1 tab 2 times a day for 7 days. For edema, take furosemide 20 mg 1 tab daily for 7 days. Keep covered with a dressing. See Dr Mcdowell in 2-3 days. See account development specialist in the next week. Return to ED if you symptoms are getting worse (any increase in redness, swelling, drainage, pain, warmth, fever). Sepsis Event Note (ED) - Evaluation Sepsis Screening Result: No Definite Risk - Focused Exam Vital Signs: Vital Signs Temp Pulse Resp BP Pulse Ox 04/20/20 19:12 36.8 C 85 16 156/83 H 97 - My Orders Last 24 Hours: My Active Orders 04/20/20 20:17 Doxycycline [Vibra-Tabs] 100 mg PO ONETIME ONE Furosemide [Lasix] 20 mg PO ONETIME ONE Sulfamethoxazole/Trimethoprim [Septra DS] 1 tab PO ONETIME ONE - Assessment/Plan Last 24 Hours: My Active Orders 04/20/20 20:17 Doxycycline [Vibra-Tabs] 100 mg PO ONETIME ONE Furosemide [Lasix] 20 mg PO ONETIME ONE Sulfamethoxazole/Trimethoprim [Septra DS] 1 tab PO ONETIME ONE
[2020-04-20] MEDS ORDERED: Furosemide 20 MG Tab PO ONE (20:17)
[2020-04-20] MEDS ORDERED: Sulfamethoxazole/Trimethoprim 800-160 MG Tab PO ONE (20:17)
[2020-04-20] MEDS ORDERED: Doxycycline 100 MG Tab PO ONE (20:17)
[2020-04-20 21:21] VITALS: BP 153/77; PULSE 79
== END 2020-04-20 20:45 | disposition home or self-care (01) ==
LOC: FB.ED 18:35
DX: I83.018 Varicose veins of right lower extremity with ulcer other part of lower leg (principal); I83.028 Varicose veins of left lower extremity with ulcer other part of lower leg; L97.819 Non-pressure chronic ulcer of other part of right lower leg with unspecified severity; L97.829 Non-pressure chronic ulcer of other part of left lower leg with unspecified severity; L03.116 Cellulitis of left lower limb; K21.9 Gastro-esophageal reflux disease without esophagitis; I50.9 Heart failure, unspecified; G62.9 Polyneuropathy, unspecified; E66.9 Obesity, unspecified; F17.210 Nicotine dependence, cigarettes, uncomplicated; Z68.41 Body mass index [BMI] 40.0-44.9, adult; R79.89 Other specified abnormal findings of blood chemistry; Z88.6 Allergy status to analgesic agent; Z88.5 Allergy status to narcotic agent; Z88.0 Allergy status to penicillin; Z88.2 Allergy status to sulfonamides; Z91.048 Other nonmedicinal substance allergy status; Z79.899 Other long term (current) drug therapy
CPT/HCPCS: 36415; 80053; 85025; 86140; 99283; A9270-GY

== ENCOUNTER 2020-07-16 23:06 | Emergency (ER) | payer MEDICARE, MEDICAID ==
[2020-07-16] MEDS ORDERED: traMADol 50 MG Tab PO ONE (23:07)
[2020-07-16] MEDS ORDERED: Ondansetron 4 MG/2 ML SDV IVPUSH ONE (23:58)
[2020-07-16] MEDS ORDERED: HYDROmorphone 2 MG/ML SDV IVPUSH ONE (23:58)
[2020-07-17] MEDS ORDERED: Sodium Chloride 0.9% 1,000 ML IV ONE (00:02)
--- NOTE | 2020-07-17 00:03 | EDM.PDOC ---
ED HPI GENERAL MEDICAL PROBLEM - General Chief Complaint: Abdominal Pain Stated Complaint: ABDOMINAL PAIN Time Seen by Provider: 07/16/20 23:30 Source of Information: Reports: Patient History Limitations: Reports: No Limitations - History of Present Illness INITIAL COMMENTS - FREE TEXT/NARRATIVE: c/o RLQ pain x 2-3w pt has had a lump and pain in RLQ x 2-3w h/o gastric bypass and "tummy tuck" and choly, also with several abd wall hernias including mesh discomfort has been continuous, pt did not think it was a hernia as it was lower than previously also had lithotripsy for several kidney stones last hernia surgery in [place] on 10/12 not sure she ate today Right Lower Abdomen Pain Score (Numeric/FACES): 10 - Related Data Allergies Allergy/AdvReac Type Severity Reaction Status Date / Time acetaminophen [From Percocet] Allergy Other Verified 01/14/18 21:20 oxycodone [From Percocet] Allergy Other Verified 01/14/18 21:20 Penicillins Allergy Hives Verified 01/14/18 21:20 Sulfa (Sulfonamide Allergy Edema Verified 01/14/18 21:20 Antibiotics) TAPE Allergy Rash Uncoded 01/14/18 21:20 Home Meds: Home Meds Cyanocobalamin (Vitamin B12) [Vitamin B12] 500 mcg PO DAILY 08/11/13 [History] DULoxetine [Cymbalta] 120 mg PO BEDTIME 08/11/13 [History] FA/Lycopene/Lut/MV,Ca,Iron,Min [Centrum] 1 tab PO DAILY 08/11/13 [History] Gabapentin 800 mg PO TID 08/11/13 [History] Omeprazole 20 mg PO DAILY 08/11/13 [History] Cholecalciferol (Vitamin D3) [Vitamin D3] 2,000 unit PO DAILY 07/07/14 [History] Dicyclomine [Bentyl] 10 mg PO QID PRN #16 cap 02/03/17 [Rx] Ondansetron [Zofran ODT] 4 mg PO Q6H PRN #20 tab 02/03/17 [Rx] Naproxen [Naprosyn] 500 mg PO Q12HR 01/03/18 [History] Varenicline [Chantix] 1 mg PO BID #60 tablet 04/03/18 [Rx] Melatonin 3 mg PO BEDTIME 04/20/20 [History] Vitamin E 400 unit PO DAILY 07/16/20 [History] Past Medical History HEENT History: Reports: Glaucoma Cardiovascular History: Reports: Heart Failure Other Cardiovascular History: arteriosclerotic heart disease/ lymphedema both legs Respiratory History: Reports: Pneumonia, Recurrent, Sleep Apnea, SOB Gastrointestinal History: Reports: Diverticulosis, GERD Genitourinary History: Reports: Renal Calculus 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 History: Reports: Musculoskeletal History: Reports: Arthritis, Fracture, Other (See Below) Other Musculoskeletal History: bone spurs Neurological History: Reports: Neuropathy, Peripheral Psychiatric History: Reports: Depression Endocrine/Metabolic History: Reports: Obesity/BMI 30+, Vitamin D Deficiency Hematologic History: Reports: B12 Deficiency Dermatologic History: Reports: Decubitus Ulcer - Infectious Disease History Infectious Disease History: Reports: MRSA, VRE - Past Surgical History HEENT Surgical History: Reports: Tonsillectomy GI Surgical History: Reports: Bariatric Procedure, Cholecystectomy, Hernia, Abdominal Female Surgical History: Reports: Section, Cystoscopy, Lithotripsy/ESWL, Tubal Ligation, Ureteral Stent Musculoskeletal Surgical History: Reports: Hip Replacement, Other (See Below) Other Musculoskeletal Surgeries/Procedures:: right hip replacement Social & Family History - Family History Family Medical History: Noncontributory - Tobacco Use Smoking Status *Q: Current Every Day Smoker Years of Tobacco use: 35 Packs/Tins Daily: 0.5 - Caffeine Use Caffeine Use: Reports: Soda - Recreational Drug Use Recreational Drug Use: Yes Drug Use in Last 12 Months: Yes Recreational Drug Type: Reports: Marijuana/Hashish Recreational Drug Use Frequency: Socially ED ROS GENERAL - Review of Systems Review Of Systems: See Below Constitutional: Reports: No Symptoms HEENT: Reports: No Symptoms Respiratory: Reports: No Symptoms Cardiovascular: Reports: No Symptoms Endocrine: Reports: No Symptoms GI/Abdominal: Reports: Abdominal Pain, Other (last BM 1d ago, soft and brown, swell and pain). Denies: Constipation, Diarrhea, Nausea, Vomiting : Reports: No Symptoms Musculoskeletal: Reports: No Symptoms Skin: Reports: No Symptoms Neurological: Reports: No Symptoms Psychiatric: Reports: No Symptoms Hematologic/Lymphatic: Reports: No Symptoms Immunologic: Reports: No Symptoms ED EXAM, GI/ABD - Physical Exam Exam: See Below Exam Limited By: No Limitations General Appearance: Alert, WD/WN, No Apparent Distress Nose: Normal Inspection, Normal Mucosa, No Blood Throat/Mouth: Normal Inspection, Normal Voice, No Airway Compromise Head: Atraumatic, Normocephalic Neck: Normal Inspection, Supple, Non-Tender, Full Range of Motion. No: Lymphadenopathy (R), Lymphadenopathy (L) Respiratory/Chest: No Respiratory Distress, Lungs Clear, Normal Breath Sounds, No Accessory Muscle Use Cardiovascular: Regular Rate, Rhythm, No Edema, No Murmur GI/Abdominal Exam: Other (long midline scar, very good BS x 4, ~15 x 15 x 6 cm swollen tender area in R inguinal area that is 1-2+ tender and not reducible, some red, no warm, firm but ot hard, winces with pain when reduction attempted) Course - Vital Signs Last Recorded V/S: Last Vital Signs Temp 36.7 C 07/16/20 23:17 Pulse 62 07/16/20 23:17 Resp 18 07/16/20 23:17 BP 140/73 07/16/20 23:17 Pulse Ox 100 07/16/20 23:17 - Orders/Labs/Meds Orders: Active Orders 24 hr Category Date Time Status Abdomen Pelvis w Cont [CT] Stat Exams 07/16/20 23:54 Ordered Labs: Laboratory Tests 07/17/20 07/17/20 07/17/20 Range/Units 00:00 00:25 00:25 WBC 7.0 (4.5-12.0) X10-3/uL RBC 4.86 (3.23-5.20) x10(6)uL Hgb 12.0 (11.5-15.5) g/dL Hct 38.2 (30.0-51.3) % MCV 78.7 L (80-96) fL MCH 24.8 L (27.7-33.6) pg MCHC 31.5 L (32.2-35.4) g/dL RDW 18.1 H (11.5-15.5) % Plt Count 308 (125-369) X10(3)uL MPV 8.2 (7.4-10.4) fL Neut % (Auto) 55.6 (46-82) % Lymph % (Auto) 34.8 (13-37) % [place] % (Auto) 5.5 (4-12) % Eos % (Auto) 3 (1.0-5.0) % Baso % (Auto) 1 (0-2) % Neut # (Auto) 3.9 (1.6-8.3) # Lymph # (Auto) 2.4 (0.6-5.0) # [place] # (Auto) 0.4 (0.0-1.3) # Eos # (Auto) 0.2 (0.0-0.8) # Baso # (Auto) 0.1 (0.0-0.2) # Sodium 140 (135-145) mmol/L Potassium 3.7 (3.5-5.3) mmol/L Chloride 104 (100-110) mmol/L Carbon Dioxide 29 (21-32) mmol/L BUN 18 (7-18) mg/dL Creatinine 0.7 (0.55-1.02) mg/dL Est Cr Clr Drug Dosing 76.57 mL/min Estimated GFR (MDRD) > 60 (>60) BUN/Creatinine Ratio 25.7 H (9-20) Glucose 88 (80-116) mg/dL Calcium 8.6 (8.6-10.2) mg/dL Total Bilirubin 0.6 (0.1-1.3) mg/dL AST 15 (5-25) IU/L ALT 19 (12-36) U/L Alkaline Phosphatase 149 H (56-112) IU/L Lactate Dehydrogenase 188 (81-234) U/L Creatine Kinase 44 L (60-160) IU/L C-Reactive Protein (0.5-0.9) mg/dL Total Protein 6.6 (6.0-8.0) g/dL Albumin 2.9 L (3.5-5.2) g/dL Globulin 3.7 g/dL Albumin/Globulin Ratio 0.8 Urine Color Yellow (YELLOW) Urine Appearance Slightly cloudy (CLEAR) Urine pH 6.5 (5.0-6.5) Ur Specific [place] 1.005 L (1.010-1.025) Urine Protein Negative (NEGATIVE) mg/dL Urine Glucose (UA) Normal (NORMAL) mg/dL Urine Ketones Negative (NEGATIVE) mg/dL Urine Occult Blood Negative (NEGATIVE) Urine Nitrite Negative (NEGATIVE) Urine Bilirubin Negative (NEGATIVE) Urine Urobilinogen Normal (NEGATIVE) mg/dL Ur Leukocyte Esterase Moderate H (NEGATIVE) Urine RBC 0-5 (0-5) Urine WBC 0-5 (0-5) Ur Squamous Epith Cells Few H (NS,R,O) Urine Bacteria Few H (NS) 07/17/20 Range/Units 00:25 WBC (4.5-12.0) X10-3/uL RBC (3.23-5.20) x10(6)uL Hgb (11.5-15.5) g/dL Hct (30.0-51.3) % MCV (80-96) fL MCH (27.7-33.6) pg MCHC (32.2-35.4) g/dL RDW (11.5-15.5) % Plt Count (125-369) X10(3)uL MPV (7.4-10.4) fL Neut % (Auto) (46-82) % Lymph % (Auto) (13-37) % [place] % (Auto) (4-12) % Eos % (Auto) (1.0-5.0) % Baso % (Auto) (0-2) % Neut # (Auto) (1.6-8.3) # Lymph # (Auto) (0.6-5.0) # [place] # (Auto) (0.0-1.3) # Eos # (Auto) (0.0-0.8) # Baso # (Auto) (0.0-0.2) # Sodium (135-145) mmol/L Potassium (3.5-5.3) mmol/L Chloride (100-110) mmol/L Carbon Dioxide (21-32) mmol/L BUN (7-18) mg/dL Creatinine (0.55-1.02) mg/dL Est Cr Clr Drug Dosing mL/min Estimated GFR (MDRD) (>60) BUN/Creatinine Ratio (9-20) Glucose (80-116) mg/dL Calcium (8.6-10.2) mg/dL Total Bilirubin (0.1-1.3) mg/dL AST (5-25) IU/L ALT (12-36) U/L Alkaline Phosphatase (56-112) IU/L Lactate Dehydrogenase (81-234) U/L Creatine Kinase (60-160) IU/L C-Reactive Protein 0.3 L (0.5-0.9) mg/dL Total Protein (6.0-8.0) g/dL Albumin (3.5-5.2) g/dL Globulin g/dL Albumin/Globulin Ratio Urine Color (YELLOW) Urine Appearance (CLEAR) Urine pH (5.0-6.5) Ur Specific [place] (1.010-1.025) Urine Protein (NEGATIVE) mg/dL Urine Glucose (UA) (NORMAL) mg/dL Urine Ketones (NEGATIVE) mg/dL Urine Occult Blood (NEGATIVE) Urine Nitrite (NEGATIVE) Urine Bilirubin (NEGATIVE) Urine Urobilinogen (NEGATIVE) mg/dL Ur Leukocyte Esterase (NEGATIVE) Urine RBC (0-5) Urine WBC (0-5) Ur Squamous Epith Cells (NS,R,O) Urine Bacteria (NS) Meds: Medications Discontinued Medications Generic Name Dose Route Start Last Admin Trade Name Freq PRN Reason Stop Dose Admin Hydromorphone HCl 0.5 mg 07/16/20 23:58 07/17/20 00:42 Dilaudid IVPUSH 07/16/20 23:59 0.5 mg ONETIME ONE Administration Sodium Chloride 1,000 mls @ 999 mls/hr 07/17/20 00:02 07/17/20 00:44 Normal Saline IV 07/17/20 01:02 999 mls/hr .BOLUS ONE Administration Iopamidol 100 ml 07/17/20 01:01 07/17/20 01:20 Isovue-370 (76%) IV 07/17/20 01:02 100 ml . DIRECTED ONE Administration Ondansetron HCl 4 mg 07/16/20 23:58 07/17/20 00:44 Zofran IVPUSH 07/16/20 23:59 4 mg ONETIME ONE Administration - Re-Assessments/Exams Free Text/Narrative Re-Assessment/Exam: 07/17/20 02:36 Dilaudid 0.5 mg IV may pt slightly woozy, did help the pain, R groin was less tender on exam CT report reviewed with pt, also d/w Dr Ellis who was on-call Dr Ellis recommended pt see Dr Velasquez in 2 days, will also obtain an u/s in 2 days in the morning u/s d/w María, prosthetic lab technician, who said that she would call the pt with an appointment time for the u/s later today outpt requisition form for u/s completed pt in agreement, says the Dr Mcdowell uses tramadol for pain and that she is able to take APAP Departure - Departure Time of Disposition: 02:31 Disposition: Home, Self-Care 01 Condition: Good Clinical Impression: Right groin mass - Discharge Information *PRESCRIPTION DRUG MONITORING PROGRAM REVIEWED*: Not Applicable *COPY OF PRESCRIPTION DRUG MONITORING REPORT IN PATIENT ROBEL: Not Applicable Instructions: Hernia, Adult Referrals: Chaz Mcdowell MD [Primary Care Provider] - Forms: ED Department Discharge Additional Instructions: There is inflamed and irritated tissue in the right groin area, possibly scar tissue. For pain and inflammation, take acetaminophen 500 mg 2 tabs 4 times a day for the next several days (meals and bedtime). For pain, as needed, take tramadol 50 mg 1 tab 4 times a day for the next several days (meals and bedtime). Come to the Department of Radiology in 2 days, Sunday, for an ultrasound. María will call you later today with an appointment time. In 2 days, on Sunday, call the [facility] for a same day appointment that afternoon with Dr Velasquez to go over the ultrasound results and for his evaluation and recommendations. If the swelling gets larger or the pain gets worse in the meantime, despite the pain medication, return to the Emergency Department. Sepsis Event Note (ED) - Evaluation Sepsis Screening Result: No Definite Risk - Focused Exam Vital Signs: Vital Signs Temp Pulse Resp BP Pulse Ox 07/16/20 23:17 36.7 C 62 18 140/73 100 - My Orders Last 24 Hours: My Active Orders 07/16/20 23:54 Abdomen Pelvis w Cont [CT] Stat - Assessment/Plan Last 24 Hours: My Active Orders 07/16/20 23:54 Abdomen Pelvis w Cont [CT] Stat
[2020-07-17] MEDS ORDERED: Iopamidol 755 Mg/ML 100 ML Bottle IV ONE (01:01)
[2020-07-17 02:41] VITALS: BP 140/64; PULSE 95
== END 2020-07-17 02:45 | disposition home or self-care (01) ==
LOC: FB.ED 23:06
DX: R19.03 Right lower quadrant abdominal swelling, mass and lump (principal); I50.9 Heart failure, unspecified; K21.9 Gastro-esophageal reflux disease without esophagitis; G62.9 Polyneuropathy, unspecified; F32.9 Major depressive disorder, single episode, unspecified; F17.210 Nicotine dependence, cigarettes, uncomplicated; E66.9 Obesity, unspecified; Z68.42 Body mass index [BMI] 45.0-49.9, adult; Z88.6 Allergy status to analgesic agent; Z88.5 Allergy status to narcotic agent; Z88.0 Allergy status to penicillin; Z88.2 Allergy status to sulfonamides; Z91.048 Other nonmedicinal substance allergy status; Z79.899 Other long term (current) drug therapy
CPT/HCPCS: 36415; 74177; 80053; 81001; 82550; 83615; 85025; 86140; 96374; 96375; 99284; A9270; J1170; J2405; J7030; Q9967

== ENCOUNTER 2020-09-13 08:51 | Day surgery (SDC) | payer MEDICARE, MEDICAID ==
[~2020-09-13 08:51] MED LIST changes: +Sodium Chloride 0.9% 10 ML Syringe FLUSH PRN
[2020-09-13] MEDS ORDERED: Ketamine 500 mg/10 ML MDV IV ONE (08:52)
[2020-09-13] MEDS ORDERED: Midazolam 1 MG/ML 2 ML SDV IV ONE (08:52)
[2020-09-13] MEDS ORDERED: Propofol 200 MG/20 ML SDV IV ONE (08:52)
[2020-09-13] MEDS ORDERED: cefOXitin 2 GM Vial IV ONE (09:25)
[2020-09-13] MEDS ORDERED: Lidocaine 1% with EPINEPHrine 1:100,000 20 ML MDV INJECT ONE (10:41)
[2020-09-13] MEDS ORDERED: Bupivacaine 0.5% 30 ML SDV INJECT ONE (10:41)
--- NOTE | 2020-09-13 11:17 | PCM.OPNOTE ---
- General Post-Op/Procedure Note Date of Surgery/Procedure: 09/13/20 Operative Procedure(s): debridement of chronic wound abscess and abd wall Findings: three chronic abscess. lateral and midline measure 1 cm middle abscess 2 cm in diameter Pre Op Diagnosis: chronic wound abscess/sinus Post-Op Diagnosis: chronic wound abscess Anesthesia Technique: Local (10 ml 1 % lido with epi/0.5% buvipicaine), MAC Primary Surgeon: Danielito Velasquez Anesthesia Provider: Yojana Castellanos Pathology: abscess cavity x3 submitted one container Complications: None Condition: Good Free Text/Narrative:: see dictation [id number]
[2020-09-13 12:22] VITALS: BP 152/77; PULSE 72
--- NOTE | 2020-09-13 12:59 | OR ---
DATE OF OPERATION: 09/13/2020 SURGEON: Danielito Velasquez MD PROCEDURES PERFORMED: Excision of chronic abdominal wall abscesses, debridement. 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 POSTOPERATIVE DIAGNOSIS: Three abdominal wall abscesses. INDICATIONS FOR PROCEDURE: Ms. Guerin is a 59-year-old white female who has undergone a panniculectomy many years ago. She has recently started to develop chronic wound infections in her scar, one located on the midline, one at the proximal level of the midclavicular line, and one lateral, approximately anterior axillary line in the scar that is present. She has undergone multiple I and D's. Because of the chronicity of it, debridement was offered to the patient to aid in healing. Also, there was a possibility that these may represent old chronic stitch abscesses as well. INTRAOPERATIVE FINDINGS: 1. The lateral and mid abdominal wall abscess cavities were approximately 1 cm in diameter. No evidence of any suture at the base. 2. The midclavicular line abscess, which was between these 2, was approximately 2 cm in size. Again, no suture was noted at the base. Total local used was 10 mL of 1:1 mixture of 1% lidocaine with epinephrine and 0.5% bupivacaine. DESCRIPTION OF PROCEDURE: After an excellent IV sedation was administered, the patient was prepped and draped in the usual sterile manner. The sinus tracts and the surrounding tissue were infiltrated with our local mixture. Attention was turned to the most lateral abscess cavity. Elliptical incision was carried out, and the underlying granulation tissue was dissected free down to the anterior abdominal wall fascia. No evidence of a suture was noted. Bleeding was controlled with electrocautery. The process was repeated for the midclavicular line abscess. Again, an elliptical incision was made surrounding the abscess cavity, and the granulation tissues were excised back to scar tissue and fascia on the anterior abdominal wall. There was no evidence of any suture present. Bleeding again was controlled with electrocautery. Finally, the midline wound process was repeated again, and again elliptical incision with excision of the granulation tissue back to scar tissue. Exploration of the base failed to reveal any evidence of any chronic suture that could be causing these repeat infections. We then placed 0 Prolene across the wound to aid in closure later once granulation tissue develops. One was placed for the midline in the lateral incisions, and 2 were placed in the midclavicular line incision. The wounds were then packed with iodoform gauze. The sutures were Steri-Stripped away from the field. Dressing was applied. Needle, sponge, and instrument counts were reported as correct. The patient was taken to Recovery in good condition. /[id number] /MODL
== END 2020-09-13 12:49 | disposition home or self-care (01) ==
LOC: FB.SDS 08:51
PROVIDERS: ATTEND Surgery
DX: L02.211 Cutaneous abscess of abdominal wall (principal); E66.01 Morbid (severe) obesity due to excess calories; G62.9 Polyneuropathy, unspecified; K66.8 Other specified disorders of peritoneum; Z79.899 Other long term (current) drug therapy; Z88.0 Allergy status to penicillin; Z88.2 Allergy status to sulfonamides; Z88.8 Allergy status to other drugs, medicaments and biological substances; Z98.890 Other specified postprocedural states; Z68.42 Body mass index [BMI] 45.0-49.9, adult
CPT/HCPCS: 00840; 49020; 88305; J0694; J2250; J2704; J3490; J7120

== ENCOUNTER 2020-09-29 23:20 | Emergency (ER) | payer MEDICARE, MEDICAID ==
[2020-09-29] MEDS ORDERED: Sodium Chloride 0.9% 10 ML Syringe FLUSH PRN (23:46)
--- NOTE | 2020-09-30 01:07 | EDM.PDOC ---
ED HPI GENERAL MEDICAL PROBLEM - General Chief Complaint: General Stated Complaint: SHORT OF BREATHE Time Seen by Provider: 09/29/20 23:45 Source of Information: Reports: Patient History Limitations: Reports: No Limitations - History of Present Illness INITIAL COMMENTS - FREE TEXT/NARRATIVE: Patient presented to the ED because of dyspnea, dry cough, fever, chills and body malaise. for 1 day and N/V/D for 2 days which has already resolved. Treatments [employer]: Reports: Acetaminophen, Oxygen Other Treatments [employer]: 1000 tylenol 650mg taken chronic shoulder/back Pain Score (Numeric/FACES): 3 - Related Data Allergies Allergy/AdvReac Type Severity Reaction Status Date / Time acetaminophen [From Percocet] Allergy Other Verified 09/29/20 23:39 oxycodone [From Percocet] Allergy Other Verified 09/29/20 23:39 Penicillins Allergy Hives Verified 09/29/20 23:39 Sulfa (Sulfonamide Allergy Edema Verified 09/29/20 23:39 Antibiotics) TAPE Allergy Rash Uncoded 09/29/20 23:39 Home Meds: Home Meds Cyanocobalamin (Vitamin B12) [Vitamin B12] 500 mcg PO DAILY 08/11/13 [History] DULoxetine [Cymbalta] 120 mg PO BEDTIME 08/11/13 [History] Gabapentin 800 mg PO TID 08/11/13 [History] Omeprazole 20 mg PO DAILY 08/11/13 [History] Ondansetron [Zofran ODT] 4 mg PO Q6H PRN #20 tab 02/03/17 [Rx] Naproxen [Naprosyn] 500 mg PO BID 01/03/18 [History] Varenicline [Chantix] 1 mg PO BID #60 tablet 01/08/18 [Rx] Melatonin 3 mg PO BEDTIME 04/20/20 [History] Vitamin E 400 unit PO DAILY 07/16/20 [History] Albuterol Sulfate [Albuterol Sulfate Hfa] 2 puff INH Q4HR PRN 09/09/20 [History] Cholecalciferol (Vitamin D3) [Vitamin D3] 2,000 unit PO DAILY 09/09/20 [History] Diclofenac Sodium [Voltaren 1% Gel] 4 g TOP QID 09/09/20 [History] Dicyclomine [Bentyl] 20 mg PO QID 09/09/20 [History] Ketoconazole [Nizoral 2% Crm] 1 applic TOP DAILY 09/09/20 [History] Multivitamin/Iron/Folic Acid [Centrum Complete Multivit] 1 tab PO DAILY 09/09/20 [History] Silver Sulfadiazine [Silvadene 1% Cream 400 GM] 1 applic TOP BID 09/09/20 [History] Urea 1 applic TP ASDIRECTED 09/09/20 [History] cephALEXin [Keflex] 500 mg PO TID 09/09/20 [History] Ibuprofen 800 mg PO Q8H PRN #30 tablet 09/30/20 [Rx] dexAMETHasone [Dexamethasone] 6 mg PO DAILY #30 tab 09/30/20 [Rx] Past Medical History HEENT History: Reports: Glaucoma, Impaired Vision Other HEENT History: glasses Cardiovascular History: Reports: Heart Failure Other Cardiovascular History: arteriosclerotic heart disease/ lymphedema both legs Respiratory History: Reports: Pneumonia, Recurrent, Sleep Apnea, SOB Gastrointestinal History: Reports: Diverticulosis, GERD Genitourinary History: Reports: Renal Calculus Other Genitourinary History: RENAL COLIC, TRICHOMONAL CCERVICITIS [employer] RECEPTIONIST History: Reports: Musculoskeletal History: Reports: Arthritis, Fracture, Osteoarthritis, Other (See Below) Other Musculoskeletal History: bone spurs, LYMPHEDEMA, WOUND LEFT LEG SEQUELA, LUMBAR DEGENERATIVE DISEASE, DEGENERATIVE DISC DISEASE, MYOFASCIAL PAIN SYNDROME Neurological History: Reports: Neuropathy, Peripheral Other Neuro History: on gabapentin 800mg TID, compression/lymphedema hose bilat lower legs. Psychiatric History: Reports: Anxiety, Depression Endocrine/Metabolic History: Reports: Obesity/BMI 30+, Vitamin D Deficiency Hematologic History: Reports: B12 Deficiency Dermatologic History: Reports: Decubitus Ulcer, Other (See Below) Other Dermatologic History: HYPERTROPHIC AND ATROPHIC CONDITION OF THE SKIN, CHOROIDAL NEVUS - Infectious Disease History Infectious Disease History: Reports: MRSA, VRE - Past Surgical History Head Surgeries/Procedures: Reports: None HEENT Surgical History: Reports: Tonsillectomy Cardiovascular Surgical History: Reports: None GI Surgical History: Reports: Bariatric Procedure, Cholecystectomy, Colonoscopy, Hernia, Abdominal, Hernia Repair/Other Other GI Surgeries/Procedures: tummy tuck, SMALL INTESTINE SURGERY, 09-13-20 abscess/abd I&D. Female Surgical History: Reports: Section, Cystoscopy, Lithotripsy/ESWL, Tubal Ligation, Ureteral Stent Neurological Surgical History: Reports: None Musculoskeletal Surgical History: Reports: Hip Replacement, Other (See Below) Other Musculoskeletal Surgeries/Procedures:: right hip replacement, CARPAL TUNNEL, FRACTURE SURGERY, injections for chronic pain Dermatological Surgical History: Reports: Other (See Below) Social & Family History - Family History Family Medical History: No Pertinent Family History - Tobacco Use Tobacco Use Status *Q: Current Every Day Tobacco User Years of Tobacco use: 30 Packs/Tins Daily: 1 - Caffeine Use Caffeine Use: Reports: Soda Caffeine Use Comment: 1-2 daily - Recreational Drug Use Recreational Drug Use: No ED ROS GENERAL - Review of Systems Review Of Systems: See Below Constitutional: Reports: Fever, Chills, Malaise, Weakness HEENT: Reports: No Symptoms Respiratory: Reports: Shortness of Breath, Cough Cardiovascular: Reports: No Symptoms Endocrine: Reports: No Symptoms GI/Abdominal: Reports: Diarrhea, Nausea, Vomiting Musculoskeletal: Reports: No Symptoms Skin: Reports: No Symptoms Neurological: Reports: No Symptoms Psychiatric: Reports: No Symptoms ED EXAM, GENERAL - Physical Exam Exam: See Below Exam Limited By: No Limitations General Appearance: Alert, No Apparent Distress Eye Exam: Bilateral Eye: PERRL Ears: Normal External Exam, Normal Canal Nose: Normal Inspection, Normal Mucosa, No Blood Throat/Mouth: Normal Inspection, Normal Lips Head: Atraumatic, Normocephalic Neck: Normal Inspection, Supple, Non-Tender, Full Range of Motion Respiratory/Chest: No Respiratory Distress, Lungs Clear, Normal Breath Sounds Cardiovascular: Normal Peripheral Pulses, Regular Rate, Rhythm, No Edema, No Gallop, No JVD, No Murmur GI/Abdominal: Normal Bowel Sounds, Soft Back Exam: Normal Inspection, Full Range of Motion Extremities: Normal Inspection, Normal Range of Motion, Non-Tender Course - Vital Signs Text/Narrative:: Lab results and EKG, CXRwas discussed with patient CXR-see result Covid-positive Toradol 60 mg IM x1 Tramadol 100 mg PO x1 Last Recorded V/S: Last Vital Signs Temp 37.7 C 09/29/20 23:25 Pulse 116 H 09/30/20 01:09 Resp 20 09/30/20 01:09 BP 121/73 09/29/20 23:25 Pulse Ox 96 12/24/20 01:09 - Orders/Labs/Meds Orders: Active Orders 24 hr Category Date Time Status EKG Documentation Completion [RC] ASDIRECTED Care 09/29/20 23:42 Active Chest 1V Frontal [CR] Stat Exams 09/29/20 23:45 Taken Sodium Chloride 0.9% [Saline Flush] Med 09/29/20 23:46 Active 10 ml FLUSH ASDIRECTED PRN EKG 12 Lead [EK] Routine Ther 09/29/20 23:42 Ordered Medication Orders Sodium Chloride (Saline Flush) 10 ml FLUSH ASDIRECTED PRN PRN Reason: keep vein open Labs: Laboratory Tests 09/29/20 09/29/20 09/29/20 Range/Units 23:50 23:50 23:50 WBC 10.4 H (3.0-10.3) x10-3/uL RBC 4.77 (3.60-5.20) x10(6)uL Hgb 11.5 (11.4-15.5) g/dL Hct 37.0 (34.2-48.2) % MCV 77.5 (76.7-100.5) fL MCH 24.1 (23.9-33.9) pg MCHC 31.0 L (31.9-34.8) g/dL RDW 17.7 H (12.3-16.5) % Plt Count 241 (151-488) x10(3)uL MPV 8.4 (7.1-12.4) fL Neut % (Auto) 94.6 H (30.8-76.2) % Lymph % (Auto) 1.6 L (18.4-52.1) % Garden % (Auto) 2.1 L (4.4-15.7) % Eos % (Auto) 0.9 (0.6-8.1) % Baso % (Auto) 0.8 (0.2-1.5) % Neut # (Auto) 9.8 H (1.5-6.3) x10-3/uL Lymph # (Auto) 0.2 L (1.0-4.4) x10-3/uL Garden # (Auto) 0.2 L (0.3-1.0) x10-3/uL Eos # (Auto) 0.1 (0.0-0.8) x10-3/uL Baso # (Auto) 0.1 (0.0-0.1) x10-3/uL Sodium 138 (135-145) mmol/L Potassium 3.6 (3.5-5.3) mmol/L Chloride 101 (100-110) mmol/L Carbon Dioxide 27 (21-32) mmol/L BUN 21 H (7-18) mg/dL Creatinine 0.9 (0.55-1.02) mg/dL Est Cr Clr Drug Dosing 59.55 mL/min Estimated GFR (MDRD) > 60 (>60) BUN/Creatinine Ratio 23.3 H (9-20) Glucose 95 (80-116) mg/dL Calcium 8.7 (8.6-10.2) mg/dL Total Bilirubin 0.6 (0.1-1.3) mg/dL AST 27 H D (5-25) IU/L ALT 25 D (12-36) U/L Alkaline Phosphatase 119 H (56-112) IU/L Troponin I 5.8 (4.0-60.3) pg/mL NT-Pro-B Natriuret Pep 128 H (<=125) pg/mL Total Protein 6.3 (6.0-8.0) g/dL Albumin 2.8 L (3.5-5.2) g/dL Globulin 3.5 g/dL Albumin/Globulin Ratio 0.8 SARS-CoV-2 RNA ([facility]) (NEGATIVE) 09/29/20 Range/Units 23:55 WBC (3.0-10.3) x10-3/uL RBC (3.60-5.20) x10(6)uL Hgb (11.4-15.5) g/dL Hct (34.2-48.2) % MCV (76.7-100.5) fL MCH (23.9-33.9) pg MCHC (31.9-34.8) g/dL RDW (12.3-16.5) % Plt Count (151-488) x10(3)uL MPV (7.1-12.4) fL Neut % (Auto) (30.8-76.2) % Lymph % (Auto) (18.4-52.1) % Garden % (Auto) (4.4-15.7) % Eos % (Auto) (0.6-8.1) % Baso % (Auto) (0.2-1.5) % Neut # (Auto) (1.5-6.3) x10-3/uL Lymph # (Auto) (1.0-4.4) x10-3/uL Garden # (Auto) (0.3-1.0) x10-3/uL Eos # (Auto) (0.0-0.8) x10-3/uL Baso # (Auto) (0.0-0.1) x10-3/uL Sodium (135-145) mmol/L Potassium (3.5-5.3) mmol/L Chloride (100-110) mmol/L Carbon Dioxide (21-32) mmol/L BUN (7-18) mg/dL Creatinine (0.55-1.02) mg/dL Est Cr Clr Drug Dosing mL/min Estimated GFR (MDRD) (>60) BUN/Creatinine Ratio (9-20) Glucose (80-116) mg/dL Calcium (8.6-10.2) mg/dL Total Bilirubin (0.1-1.3) mg/dL AST (5-25) IU/L ALT (12-36) U/L Alkaline Phosphatase (56-112) IU/L Troponin I (4.0-60.3) pg/mL NT-Pro-B Natriuret Pep (<=125) pg/mL Total Protein (6.0-8.0) g/dL Albumin (3.5-5.2) g/dL Globulin g/dL Albumin/Globulin Ratio SARS-CoV-2 RNA ([facility]) Positive H (NEGATIVE) Meds: Medications Generic Name Dose Route Start Last Admin Trade Name Freq PRN Reason Stop Dose Admin Sodium Chloride 10 ml 09/29/20 23:46 Saline Flush FLUSH ASDIRECTED PRN keep vein open Discontinued Medications Generic Name Dose Route Start Last Admin Trade Name Freq PRN Reason Stop Dose Admin Ketorolac Tromethamine 60 mg 09/30/20 01:27 09/30/20 01:46 Toradol IM 09/30/20 01:28 60 mg ONETIME ONE Administration Tramadol HCl 100 mg 09/30/20 01:27 09/30/20 01:45 Ultram PO 09/30/20 01:28 100 mg ONETIME ONE Administration Departure - Departure Time of Disposition: 01:05 Disposition: Home, Self-Care 01 Condition: Good Clinical Impression: COVID-19 - Discharge Information Prescriptions: dexAMETHasone [Dexamethasone] 6 mg PO DAILY #30 tab Ibuprofen 800 mg PO Q8H PRN #30 tablet PRN Reason: Pain Instructions: COVID-19 Frequently Asked Questions Referrals: Chaz Mcdowell MD [Primary Care Provider] - Forms: ED Department Discharge Additional Instructions: Please read discahrge instructions on COVID Increase oral fluids, at least 2 liters a day Take ibuprofen 800 m every 8 hours as needed for pain Take 1 tablet each daily of: Vitamin C-500mg, D-2000 units, Zinc-50 mg Follow up as needed Sepsis Event Note (ED) - Evaluation Sepsis Screening Result: Possible Sepsis Risk - Focused Exam Vital Signs: Vital Signs Temp Pulse Resp BP Pulse Ox 09/30/20 01:09 116 H 20 96 09/29/20 23:25 37.7 C 102 H 21 H 121/73 98 - My Orders Last 24 Hours: My Active Orders 09/29/20 23:42 EKG Documentation Completion [RC] ASDIRECTED EKG 12 Lead [EK] Routine 09/29/20 23:45 Chest 1V Frontal [CR] Stat 09/29/20 23:46 Sodium Chloride 0.9% [Saline Flush] 10 ml FLUSH ASDIRECTED PRN - Assessment/Plan Last 24 Hours: My Active Orders 09/29/20 23:42 EKG Documentation Completion [RC] ASDIRECTED EKG 12 Lead [EK] Routine 09/29/20 23:45 Chest 1V Frontal [CR] Stat 09/29/20 23:46 Sodium Chloride 0.9% [Saline Flush] 10 ml FLUSH ASDIRECTED PRN
[2020-09-30] MEDS ORDERED: Ketorolac 60 MG/2 ML SDV IM ONE (01:27)
[2020-09-30] MEDS ORDERED: traMADol 50 MG Tab PO ONE (01:27)
[2020-09-30 04:30] VITALS: BP 110/68; PULSE 98
--- NOTE | 2020-09-30 10:47 | CR ---
INDICATION: Shortness of breath. CHEST, ONE VIEW: AP portable upright view of the chest 09/29/20 was compared with 02/03/17 and revealed the heart to be somewhat prominent, emphasized by rotation to the left. Pulmonary vasculature in the upper lung arevalo is prominent raising question of CHF or other cause of pulmonary vascular congestion - correlate clinically. Infiltration is noted in the left mid to lower lung field and right lower lung field which could be on the basis of acute pulmonary edema or possibly pneumonia and should be correlated clinically. A snap is noted overlying the right scapula. Exogenous obesity is noted. IMPRESSION: 1. Findings may be on the basis of CHF with acute pulmonary edema, although the asymmetrical infiltrates (much more prominent on the left in the mid lung field and lung base) favor superimposed pneumonia with pulmonary vascular congestion. Findings should be correlated clinically. 2. Probable ASHD. 3. Exogenous obesity. MTDD
== END 2020-09-30 04:10 | disposition home or self-care (01) ==
LOC: FB.ED 23:20
DX: U07.1 COVID-19 (principal); K21.9 Gastro-esophageal reflux disease without esophagitis; G62.9 Polyneuropathy, unspecified; I50.9 Heart failure, unspecified; F41.9 Anxiety disorder, unspecified; F32.9 Major depressive disorder, single episode, unspecified; E66.9 Obesity, unspecified; Z68.42 Body mass index [BMI] 45.0-49.9, adult; Z88.6 Allergy status to analgesic agent; Z88.5 Allergy status to narcotic agent; Z88.0 Allergy status to penicillin; Z88.2 Allergy status to sulfonamides; Z91.048 Other nonmedicinal substance allergy status; Z79.899 Other long term (current) drug therapy; F17.210 Nicotine dependence, cigarettes, uncomplicated
CPT/HCPCS: 36415; 71045; 80053; 83880; 84484; 85025; 93005; 96372; 99285; A9270; J1885; U0002

== ENCOUNTER 2020-10-06 00:02 | Emergency (ER) | payer MEDICARE, MEDICAID ==
--- NOTE | 2020-10-06 01:32 | EDM.PDOC ---
ED HPI GENERAL MEDICAL PROBLEM - General Chief Complaint: General Stated Complaint: covid Time Seen by Provider: 10/06/20 01:00 Source of Information: Reports: EMS, Family History Limitations: Reports: Altered Mental Status (Patient with altered mental status. She will awaken with verbal and physical stimulation but cannot give any history. She will follow basic commands.) - History of Present Illness INITIAL COMMENTS - FREE TEXT/NARRATIVE: 59-year-old female with history of COVID positive on 09/29/2020 with difficulty breathing, cough and fever with body aches. She was discharged on dexamethasone and told to increase her fluid intake and also to take ibuprofen for her pain and fever. According to the family, she has pretty much been in bed since her evaluation with decreased by mouth intake particularly over the past few days and today they report that she was just not really responding to them. The patient is quite lethargic but does awaken to verbal and physical stimulation. She is unable to give me any history. She does appear to have pain with palpation of her arms and legs and her abdominal area. The patient is not able to report that she has pain or able to quantitate or qualitate that pain. There are no reports of vomiting or diarrhea. Her O2 saturations were in the mid 70s when EMS arrived on room air. She is currently on 5 L/m via nasal cannula with O2 saturations of 91-92%. She does present to the emergency department via ambulance from her home. This is really all the history that I can obtain. There are no other associated signs or symptoms. There are no other modifying factors. Onset: Other (1-2 days before 09/29/2020) Duration: Getting Worse (Per family) Location: Reports: Other (Unknown. Patient cannot give me this information) Quality: Reports: Other (Unknown. Patient cannot give me that information) Improves with: Reports: Other (Unknown) Worsens with: Reports: Other (Unknown) Context: Reports: Other (As above) Associated Symptoms: Reports: No Other Symptoms (Except as above.) Treatments PROGRAMMING DIRECTOR: Reports: Other Medication(s) (Dexamethasone) - Related Data Allergies Allergy/AdvReac Type Severity Reaction Status Date / Time acetaminophen [From Percocet] Allergy Other Verified 09/29/20 23:39 oxycodone [From Percocet] Allergy Other Verified 09/29/20 23:39 Penicillins Allergy Hives Verified 09/29/20 23:39 Sulfa (Sulfonamide Allergy Edema Verified 09/29/20 23:39 Antibiotics) TAPE Allergy Rash Uncoded 09/29/20 23:39 Home Meds: Home Meds Cyanocobalamin (Vitamin B12) [Vitamin B12] 500 mcg PO DAILY 08/11/13 [History] DULoxetine [Cymbalta] 120 mg PO BEDTIME 08/11/13 [History] Gabapentin 800 mg PO TID 08/11/13 [History] Omeprazole 20 mg PO DAILY 08/11/13 [History] Ondansetron [Zofran ODT] 4 mg PO Q6H PRN #20 tab 02/03/17 [Rx] Naproxen [Naprosyn] 500 mg PO BID 01/03/18 [History] Varenicline [Chantix] 1 mg PO BID #60 tablet 01/08/18 [Rx] Melatonin 3 mg PO BEDTIME 04/20/20 [History] Vitamin E 400 unit PO DAILY 07/16/20 [History] Albuterol Sulfate [Albuterol Sulfate Hfa] 2 puff INH Q4HR PRN 09/09/20 [History] Cholecalciferol (Vitamin D3) [Vitamin D3] 2,000 unit PO DAILY 09/09/20 [History] Diclofenac Sodium [Voltaren 1% Gel] 4 g TOP QID 09/09/20 [History] Dicyclomine [Bentyl] 20 mg PO QID 09/09/20 [History] Ketoconazole [Nizoral 2% Crm] 1 applic TOP DAILY 09/09/20 [History] Multivitamin/Iron/Folic Acid [Centrum Complete Multivit] 1 tab PO DAILY 09/09/20 [History] Silver Sulfadiazine [Silvadene 1% Cream 400 GM] 1 applic TOP BID 09/09/20 [History] Urea 1 applic TP ASDIRECTED 09/09/20 [History] Ibuprofen 800 mg PO Q8H PRN #30 tablet 09/30/20 [Rx] dexAMETHasone [Dexamethasone] 6 mg PO DAILY #30 tab 09/30/20 [Rx] Past Medical History HEENT History: Reports: Glaucoma, Impaired Vision Other HEENT History: glasses Cardiovascular History: Reports: CAD, Heart Failure Other Cardiovascular History: arteriosclerotic heart disease/ lymphedema both legs Respiratory History: Reports: Pneumonia, Recurrent, Sleep Apnea Gastrointestinal History: Reports: Diverticulosis, GERD Genitourinary History: Reports: Renal Calculus Other Genitourinary History: RENAL COLIC Musculoskeletal History: Reports: Arthritis, Fracture, Osteoarthritis, Other (See Below) Other Musculoskeletal History: bone spurs, LYMPHEDEMA, WOUND LEFT LEG SEQUELA, LUMBAR DEGENERATIVE DISEASE, DEGENERATIVE DISC DISEASE, MYOFASCIAL PAIN SYNDROME Neurological History: Reports: Neuropathy, Peripheral Other Neuro History: on gabapentin 800mg TID, compression/lymphedema hose bilat lower legs. Psychiatric History: Reports: Anxiety, Depression Endocrine/Metabolic History: Reports: Obesity/BMI 30+, Vitamin D Deficiency Hematologic History: Reports: B12 Deficiency Dermatologic History: Reports: Decubitus Ulcer, Venous Stasis Dermatitis (Both lower legs.), Other (See Below) Other Dermatologic History: HYPERTROPHIC AND ATROPHIC CONDITION OF THE SKIN, CHOROIDAL NEVUS - Infectious Disease History Infectious Disease History: Reports: MRSA, Novel Coronavirus, VRE - Past Surgical History HEENT Surgical History: Reports: Tonsillectomy GI Surgical History: Reports: Bariatric Procedure, Cholecystectomy, Colonoscopy, Hernia, Abdominal, Hernia Repair/Other Other GI Surgeries/Procedures: tummy tuck, SMALL INTESTINE SURGERY, 09-13-20 abscess/abd I&D. Female Surgical History: Reports: Section, Cystoscopy, Lithotripsy/ESWL, Tubal Ligation, Ureteral Stent Neurological Surgical History: Reports: None Musculoskeletal Surgical History: Reports: Hip Replacement, Other (See Below) Other Musculoskeletal Surgeries/Procedures:: right hip replacement, CARPAL TUNNEL, FRACTURE SURGERY, injections for chronic pain Social & Family History - Family History Family Medical History: No Pertinent Family History - Tobacco Use Tobacco Use Status *Q: Current Every Day Tobacco User Years of Tobacco use: 30 Packs/Tins Daily: 1 - Caffeine Use Caffeine Use: Reports: Soda Caffeine Use Comment: 1-2 daily - Recreational Drug Use Recreational Drug Use: No - Living Situation & Occupation Living situation: Reports: with Family ED ROS GENERAL - Review of Systems Review Of Systems: Unable To Obtain Reason Not Obtained: Patient with altered mental status ED EXAM, GENERAL - Physical Exam Exam: See Below Exam Limited By: No Limitations General Appearance: Lethargic (But responds to verbal and physical stimuli), Obese, Other (No overt respiratory distress.) Eye Exam: Bilateral Eye: EOMI, Normal Inspection Ears: Normal External Exam Ear Exam: Bilateral Ear: Auricle Normal Nose: No Blood, Nasal Drainage Throat/Mouth: Normal Voice, No Airway Compromise, Other (Dry mucous membranes) Head: Atraumatic, Normocephalic Neck: Normal Inspection, Supple, Non-Tender, Full Range of Motion Respiratory/Chest: No Accessory Muscle Use, Crackles (Bilaterally), Rhonchi, Wheezing (Bilaterally), Other (Increased respiratory rate.) Cardiovascular: Normal Peripheral Pulses, Regular Rate, Rhythm, No Murmur Peripheral Pulses: 2+: Radial (L), Radial (R), Dorsalis Pedis (L), Dorsalis Pedis (R) GI/Abdominal: Normal Bowel Sounds, Soft, Tender (Mild, diffuse tenderness), Other (Protuberant. Ulcers in the lower abdominal/pelvic skinfold with mild surrounding erythema and foul-smelling.) Back Exam: No: Vertebral Tenderness Extremities: Normal Range of Motion, Normal Capillary Refill, Pedal Edema, Other (Chronic venous stasis of both lower legs.) Neurological: No Motor/Sensory Deficits, Inattentive, Disoriented Skin Exam: Warm, Dry, Wound/Incision (On lower abdominal/pelvic skinfold area.) #1 Interpretation EKG Date: 10/06/20 Time: 01:32 Rhythm: NSR Rate (Beats/Min): 78 [place]: Normal P-Wave: Present QRS: Normal ST-T: Other (T-wave abnormality in anterior leads.) QT: Prolonged (Prolonged QTc.) Comparison: No Change (No change from an EKG that was performed on 09/29/2020.) Course - Vital Signs Last Recorded V/S: Last Vital Signs Temp 36.8 C 10/06/20 00:33 Pulse 77 10/06/20 06:13 Resp 30 H 10/06/20 06:13 BP 171/83 H 10/06/20 06:13 Pulse Ox 96 10/06/20 06:13 - Orders/Labs/Meds Orders: Active Orders 24 hr Category Date Time Status Rodrigues Catheter Insertion [Insert Urinary Catheter] [OM. Care 10/06/20 02:00 Ordered PC] Q24H Chest 1V Frontal [CR] Stat Exams 10/06/20 01:30 Taken CULTURE BLOOD [BC] Urgent Lab 10/06/20 01:52 Received CULTURE BLOOD [BC] Urgent Lab 12/30/20 02:00 Received Blood Culture x2 Reflex Set [OM.PC] Urgent Oth 10/06/20 01:29 Ordered Peripheral IV Insertion Adult [OM.PC] Routine Oth 10/06/20 01:33 Ordered EKG 12 Lead [EK] Routine Ther 10/06/20 00:25 Ordered Labs: Laboratory Tests 10/06/20 10/06/20 10/06/20 Range/Units 00:25 00:25 00:25 WBC 4.9 (3.0-10.3) x10-3/uL RBC 5.09 (3.60-5.20) x10(6)uL Hgb 12.1 (11.4-15.5) g/dL Hct 38.8 (34.2-48.2) % MCV 76.2 L (76.7-100.5) fL MCH 23.7 L (23.9-33.9) pg MCHC 31.2 L (31.9-34.8) g/dL RDW 18.1 H (12.3-16.5) % Plt Count 155 (151-488) x10(3)uL MPV 8.6 (7.1-12.4) fL Neut % (Auto) 82.2 H (30.8-76.2) % Lymph % (Auto) 10.8 L (18.4-52.1) % [place] % (Auto) 6.4 (4.4-15.7) % Eos % (Auto) 0.2 L (0.6-8.1) % Baso % (Auto) 0.4 (0.2-1.5) % Neut # (Auto) 4.1 (1.5-6.3) x10-3/uL Lymph # (Auto) 0.5 L (1.0-4.4) x10-3/uL [place] # (Auto) 0.3 (0.3-1.0) x10-3/uL Eos # (Auto) 0.0 (0.0-0.8) x10-3/uL Baso # (Auto) 0.0 (0.0-0.1) x10-3/uL POC VBG pH (7.32-7.43) pH Units POC VBG pCO2 (41-51) mmHg POC VBG HCO3 (21-29) mmol/L VBG Base Excess (-2-3) mmol/L O2 Delivery Device Sodium 142 (135-145) mmol/L Potassium 3.6 (3.5-5.3) mmol/L Chloride 104 (100-110) mmol/L Carbon Dioxide 27 (21-32) mmol/L BUN 14 (7-18) mg/dL Creatinine 0.9 (0.55-1.02) mg/dL Est Cr Clr Drug Dosing TNP Estimated GFR (MDRD) > 60 (>60) BUN/Creatinine Ratio 15.6 (9-20) Glucose 123 H (80-116) mg/dL Lactic Acid (0.4-2.0) mmol/L Calcium 8.7 (8.6-10.2) mg/dL Magnesium (1.8-2.5) mg/dL Total Bilirubin 0.5 (0.1-1.3) mg/dL AST 72 H D (5-25) IU/L ALT 43 H D (12-36) U/L Alkaline Phosphatase 139 H (56-112) IU/L Troponin I (4.0-60.3) pg/mL C-Reactive Protein (0.5-0.9) mg/dL NT-Pro-B Natriuret Pep (<=125) pg/mL Total Protein 6.4 (6.0-8.0) g/dL Albumin 2.0 L (3.5-5.2) g/dL Globulin 4.4 g/dL Albumin/Globulin Ratio 0.5 Urine Color Yellow (YELLOW) Urine Appearance Slightly cloudy (CLEAR) Urine pH 6.0 (5.0-6.5) Ur Specific [place] 1.015 (1.010-1.025) Urine Protein 100 H (NEGATIVE) mg/dL Urine Glucose (UA) Normal (NORMAL) mg/dL Urine Ketones 50 H (NEGATIVE) mg/dL Urine Occult Blood Negative (NEGATIVE) Urine Nitrite Negative (NEGATIVE) Urine Bilirubin Negative (NEGATIVE) Urine Urobilinogen 4 H (NEGATIVE) mg/dL Ur Leukocyte Esterase Negative (NEGATIVE) Urine RBC 0-5 (0-5) Urine WBC 0-5 (0-5) Ur Squamous Epith Cells Few H (NS,R,O) Urine Bacteria Few H (NS) Fine Granular Casts Occasional H (NS) Urine Mucus Few H (NS) 10/06/20 10/06/20 10/06/20 Range/Units 00:25 00:34 00:34 WBC (3.0-10.3) x10-3/uL RBC (3.60-5.20) x10(6)uL Hgb (11.4-15.5) g/dL Hct (34.2-48.2) % MCV (76.7-100.5) fL MCH (23.9-33.9) pg MCHC (31.9-34.8) g/dL RDW (12.3-16.5) % Plt Count (151-488) x10(3)uL MPV (7.1-12.4) fL Neut % (Auto) (30.8-76.2) % Lymph % (Auto) (18.4-52.1) % [place] % (Auto) (4.4-15.7) % Eos % (Auto) (0.6-8.1) % Baso % (Auto) (0.2-1.5) % Neut # (Auto) (1.5-6.3) x10-3/uL Lymph # (Auto) (1.0-4.4) x10-3/uL [place] # (Auto) (0.3-1.0) x10-3/uL Eos # (Auto) (0.0-0.8) x10-3/uL Baso # (Auto) (0.0-0.1) x10-3/uL POC VBG pH (7.32-7.43) pH Units POC VBG pCO2 (41-51) mmHg POC VBG HCO3 (21-29) mmol/L VBG Base Excess (-2-3) mmol/L O2 Delivery Device Sodium (135-145) mmol/L Potassium (3.5-5.3) mmol/L Chloride (100-110) mmol/L Carbon Dioxide (21-32) mmol/L BUN (7-18) mg/dL Creatinine (0.55-1.02) mg/dL Est Cr Clr Drug Dosing Estimated GFR (MDRD) (>60) BUN/Creatinine Ratio (9-20) Glucose (80-116) mg/dL Lactic Acid 1.2 (0.4-2.0) mmol/L Calcium (8.6-10.2) mg/dL Magnesium 1.8 (1.8-2.5) mg/dL Total Bilirubin (0.1-1.3) mg/dL AST (5-25) IU/L ALT (12-36) U/L Alkaline Phosphatase (56-112) IU/L Troponin I (4.0-60.3) pg/mL C-Reactive Protein 23.0 H* (0.5-0.9) mg/dL NT-Pro-B Natriuret Pep (<=125) pg/mL Total Protein (6.0-8.0) g/dL Albumin (3.5-5.2) g/dL Globulin g/dL Albumin/Globulin Ratio Urine Color (YELLOW) Urine Appearance (CLEAR) Urine pH (5.0-6.5) Ur Specific [place] (1.010-1.025) Urine Protein (NEGATIVE) mg/dL Urine Glucose (UA) (NORMAL) mg/dL Urine Ketones (NEGATIVE) mg/dL Urine Occult Blood (NEGATIVE) Urine Nitrite (NEGATIVE) Urine Bilirubin (NEGATIVE) Urine Urobilinogen (NEGATIVE) mg/dL Ur Leukocyte Esterase (NEGATIVE) Urine RBC (0-5) Urine WBC (0-5) Ur Squamous Epith Cells (NS,R,O) Urine Bacteria (NS) Fine Granular Casts (NS) Urine Mucus (NS) 10/06/20 10/06/20 Range/Units 00:34 01:52 WBC (3.0-10.3) x10-3/uL RBC (3.60-5.20) x10(6)uL Hgb (11.4-15.5) g/dL Hct (34.2-48.2) % MCV (76.7-100.5) fL MCH (23.9-33.9) pg MCHC (31.9-34.8) g/dL RDW (12.3-16.5) % Plt Count (151-488) x10(3)uL MPV (7.1-12.4) fL Neut % (Auto) (30.8-76.2) % Lymph % (Auto) (18.4-52.1) % [place] % (Auto) (4.4-15.7) % Eos % (Auto) (0.6-8.1) % Baso % (Auto) (0.2-1.5) % Neut # (Auto) (1.5-6.3) x10-3/uL Lymph # (Auto) (1.0-4.4) x10-3/uL [place] # (Auto) (0.3-1.0) x10-3/uL Eos # (Auto) (0.0-0.8) x10-3/uL Baso # (Auto) (0.0-0.1) x10-3/uL POC VBG pH 7.40 (7.32-7.43) pH Units POC VBG pCO2 44 (41-51) mmHg POC VBG HCO3 27 (21-29) mmol/L VBG Base Excess 2 (-2-3) mmol/L O2 Delivery Device Nasal cannula Sodium (135-145) mmol/L Potassium (3.5-5.3) mmol/L Chloride (100-110) mmol/L Carbon Dioxide (21-32) mmol/L BUN (7-18) mg/dL Creatinine (0.55-1.02) mg/dL Est Cr Clr Drug Dosing Estimated GFR (MDRD) (>60) BUN/Creatinine Ratio (9-20) Glucose (80-116) mg/dL Lactic Acid (0.4-2.0) mmol/L Calcium (8.6-10.2) mg/dL Magnesium (1.8-2.5) mg/dL Total Bilirubin (0.1-1.3) mg/dL AST (5-25) IU/L ALT (12-36) U/L Alkaline Phosphatase (56-112) IU/L Troponin I 28.5 (4.0-60.3) pg/mL C-Reactive Protein (0.5-0.9) mg/dL NT-Pro-B Natriuret Pep 370 H (<=125) pg/mL Total Protein (6.0-8.0) g/dL Albumin (3.5-5.2) g/dL Globulin g/dL Albumin/Globulin Ratio Urine Color (YELLOW) Urine Appearance (CLEAR) Urine pH (5.0-6.5) Ur Specific [place] (1.010-1.025) Urine Protein (NEGATIVE) mg/dL Urine Glucose (UA) (NORMAL) mg/dL Urine Ketones (NEGATIVE) mg/dL Urine Occult Blood (NEGATIVE) Urine Nitrite (NEGATIVE) Urine Bilirubin (NEGATIVE) Urine Urobilinogen (NEGATIVE) mg/dL Ur Leukocyte Esterase (NEGATIVE) Urine RBC (0-5) Urine WBC (0-5) Ur Squamous Epith Cells (NS,R,O) Urine Bacteria (NS) Fine Granular Casts (NS) Urine Mucus (NS) Meds: Medications Discontinued Medications Generic Name Dose Route Start Last Admin Trade Name Freq PRN Reason Stop Dose Admin Ceftriaxone Sodium 2 gm 10/06/20 02:38 10/06/20 02:47 Rocephin IVPUSH 10/06/20 02:39 2 gm ONETIME ONE Administration Dexamethasone 8 mg 10/06/20 02:48 10/06/20 02:50 Dexamethasone IVPUSH 10/06/20 02:49 8 mg ONETIME ONE Administration Sodium Chloride 500 mls @ 999 mls/hr 10/06/20 01:32 10/06/20 02:00 Normal Saline IV 10/06/20 02:02 999 mls/hr .BOLUS ONE Administration Sodium Chloride 1,000 mls @ 125 mls/hr 10/06/20 01:45 10/06/20 02:38 Normal Saline IV 125 mls/hr ASDIRECTED RAKEL Administration Azithromycin 500 mg/ Sodium 250 mls @ 250 mls/hr 10/06/20 02:38 10/06/20 02:48 Chloride IV 10/06/20 03:37 250 mls/hr ONETIME ONE Administration Sodium Chloride 10 ml 10/06/20 01:33 Saline Flush FLUSH ASDIRECTED PRN Keep Vein Open - Radiology Interpretation Free Text/Narrative:: Portable chest x-ray shows bilateral diffuse infiltrates with almost complete white out. - Re-Assessments/Exams Free Text/Narrative Re-Assessment/Exam: 10/06/20 02:25: Patient continues with O2 saturations between 91 and 95% on 5-6 L/m via nasal cannula. Her respiratory rate remains in the knees. She remains confused and lethargic but arouses to voice and physical stimuli with periods of conversation. She has remained neurologically stable. Pressure and pulse have remained stable as well. Her white blood cell count was normal. The platelet count was normal. The H&H were normal. Her serum electrolyte profile was normal. Magnesium was normal. CRP was elevated at 23. A serum lactate was normal. A venous blood gas showed a normal pH and a normal PCO2. A urinalysis was concentrated but showed no evidence of infection. Her chest x-ray shows bilateral filtrates with almost complete white out. This is worse on the left than the right. An EKG and a troponin were essentially unremarkable. I have had the nursing staff establish an IV and she has been given normal saline IV. I have also had them place a Rodrigues catheter so as to more accurately monitor the patient's urine output and therefore fluid status. Secondary to her high oxygen demand and her altered mental status, she will need a higher level of monitoring than is available at [facility]. She will need transferred to [facility]. I will call and discuss the patient's case with at [facility] in [place]. 10/06/20 02:30: I placed a call to [facility] and they will half to call me back with the hospitalist. I have ordered blood cultures 2 sets and I will treat the patient with IV dexamethasone and Rocephin and Zithromax. We will continue close monitoring of the patient. 10/06/20 02:58: I discussed patient's case with Dr. Pineda, hospitalist at the Covid unit at [facility], and she has agreed to accept the patient in transfer. Patient will need to be transferred via ambulance to [facility] for direct admission. 10/06/20 06:10: EMS has not been able to transfer the patient secondary to weather conditions. The patient has been maintained on now 7 L/m via simple facemask the patient tolerated this better than the nasal cannula) and her O2 saturations are 96% on this. She has had good urine output. She was quite a bit restless earlier but this has settled down with changing her from nasal cannula to simple facemask. She has remained hemodynamically stable. EMS was recalled and they should be able to transport the patient between 7 and 7:30 AM. 10/06/20 07:20: EMS is here and is transporting the patient. She remains hemo dynamically and respiratory stable thus far. The patient is being transferred to [facility] [place] ambulance for direct admission to [facility]. Departure - Departure Time of Disposition: 07:20 Disposition: DC/Tfer to Acute Hospital 02 Condition: Critical (Guarded) Clinical Impression: Pneumonia due to COVID-19 virus, Encephalopathy acute Respiratory failure with hypoxia Qualifiers: Chronicity: acute Qualified Code(s): J96.01 - Acute respiratory failure with hypoxia Sepsis Qualifiers: Sepsis type: sepsis due to unspecified organism Sepsis acute organ dysfunction status: with acute organ dysfunction Severe sepsis acute organ dysfunction type: encephalopathy Severe sepsis shock status: without septic shock Qualified Code(s): A41.9 - Sepsis, unspecified organism - Discharge Information Referrals: Chaz Mcdowell MD [Primary Care Provider] - Forms: ED Department Discharge Sepsis Event Note (ED) - Evaluation Sepsis Screening Result: No Definite Risk - Focused Exam Vital Signs: Vital Signs Temp Pulse Resp BP Pulse Ox 10/06/20 06:13 77 30 H 171/83 H 96 10/06/20 03:07 83 24 H 153/63 H 93 L 10/06/20 00:33 36.8 C 79 28 H 153/73 H 93 L - My Orders Last 24 Hours: My Active Orders 10/06/20 01:29 Blood Culture x2 Reflex Set [OM.PC] Urgent 10/06/20 01:30 Chest 1V Frontal [CR] Stat 10/06/20 01:33 Peripheral IV Insertion Adult [OM.PC] Routine 10/06/20 01:52 CULTURE BLOOD [BC] Urgent 10/06/20 02:00 Rodrigues Catheter Insertion [Insert Urinary Catheter] [OM.PC] Q24H CULTURE BLOOD [BC] Urgent - Assessment/Plan Last 24 Hours: My Active Orders 10/06/20 01:29 Blood Culture x2 Reflex Set [OM.PC] Urgent 10/06/20 01:30 Chest 1V Frontal [CR] Stat 10/06/20 01:33 Peripheral IV Insertion Adult [OM.PC] Routine 10/06/20 01:52 CULTURE BLOOD [BC] Urgent 10/06/20 02:00 Rodrigues Catheter Insertion [Insert Urinary Catheter] [OM.PC] Q24H CULTURE BLOOD [BC] Urgent
[2020-10-06] MEDS ORDERED: Sodium Chloride 0.9% 10 ML Syringe FLUSH PRN (01:33)
[2020-10-06] MEDS: Sodium Chloride 0.9% 500 ML IV ONE (02:00)
[2020-10-06 02:20] LABS: BASE EXCESS VENOUS,POC 2 mmol/L (-2-3); HCO3 VENOUS,POC 27 mmol/L (21-29); PCO2 VENOUS,POC 44 mmHg (41-51)
[2020-10-06] MEDS: Sodium Chloride 0.9% 1,000 ML IV SCH (02:38)
[2020-10-06] MEDS: cefTRIAXone 2 GM Vial IVPUSH ONE (02:47)
[2020-10-06] MEDS: Azithromycin 500 MG in Sodium Chloride 0.9% 250 ML IV ONE (02:48)
[2020-10-06] MEDS: Dexamethasone 4 MG/ML 5 ML MDV IVPUSH ONE (02:50)
[2020-10-06 06:14] VITALS: BP 171/83; PULSE 77
== END 2020-10-06 07:29 ==
LOC: FB.ED 00:02
DX: A41.9 Sepsis, unspecified organism (principal); R65.20 Severe sepsis without septic shock; J96.01 Acute respiratory failure with hypoxia; U07.1 COVID-19; J12.89 Other viral pneumonia; G93.40 Encephalopathy, unspecified; I25.10 Atherosclerotic heart disease of native coronary artery without angina pectoris; I50.9 Heart failure, unspecified; K21.9 Gastro-esophageal reflux disease without esophagitis; G62.9 Polyneuropathy, unspecified; F41.9 Anxiety disorder, unspecified; F32.9 Major depressive disorder, single episode, unspecified; F17.210 Nicotine dependence, cigarettes, uncomplicated; E66.9 Obesity, unspecified; Z88.6 Allergy status to analgesic agent; Z88.5 Allergy status to narcotic agent; Z88.0 Allergy status to penicillin; Z88.2 Allergy status to sulfonamides
CPT/HCPCS: 36415; 51702; 71045; 80053; 81001; 83605; 83735; 83880; 84484; 85025; 86140; 87040; 93005; 93010; 96365; 96375; 99285; J0456; J0696; J1100; J7030; J7040; J7050

== ENCOUNTER 2022-03-23 16:21 | Emergency (ER) | payer MEDICARE, MEDICAID ==
[2022-03-23 17:04] VITALS: BP 140/74; PULSE 92
== END 2022-03-23 18:10 | disposition home or self-care (01) ==
LOC: FB.ED 16:21
DX: I83.892 Varicose veins of left lower extremity with other complications (principal); I25.10 Atherosclerotic heart disease of native coronary artery without angina pectoris; K21.9 Gastro-esophageal reflux disease without esophagitis; E66.9 Obesity, unspecified; Z68.30 Body mass index [BMI] 30.0-30.9, adult; Z88.0 Allergy status to penicillin; Z88.2 Allergy status to sulfonamides; Z91.048 Other nonmedicinal substance allergy status; Z88.8 Allergy status to other drugs, medicaments and biological substances; Z79.899 Other long term (current) drug therapy
CPT/HCPCS: 99283

== ENCOUNTER 2024-09-29 16:55 | Emergency (ER) | payer MEDICARE, MEDICAID ==
[2024-09-29 17:09] VITALS: BP 145/74; PULSE 73
[2024-09-29] MEDS ORDERED: Sodium Chloride 0.9% 10 ML Syringe FLUSH PRN (18:47)
[2024-09-29 19:05] LABS: BILIRUBIN,URINE NEGATIVE (NEGATIVE); GLUCOSE,URINE NORMAL (NORMAL); KETONES,URINE NEGATIVE (NEGATIVE); LEUKOCYTE ESTERASE,URINE NEGATIVE (NEGATIVE); NITRITE,URINE NEGATIVE (NEGATIVE); OCCULT BLOOD,URINE NEGATIVE (NEGATIVE); PROTEIN,URINE NEGATIVE (NEGATIVE); UROBILINOGEN,URINE NORMAL (NEGATIVE)
[2024-09-29 19:07] LABS: BASOPHILS PERCENT AUTO 0.7 % (0.2-1.5); EOSINOPHILS ABSOLUTE AUTO 0.1 x10-3/uL (0.0-0.8); EOSINOPHILS PERCENT AUTO 1.9 % (0.6-8.1); HEMATOCRIT 45.2 % (34.2-48.2); HEMOGLOBIN 15.2 g/dL (11.4-15.5); LYMPHOCYTES ABSOLUTE AUTO 2.5 x10-3/uL (1.0-4.4); LYMPHOCYTES PERCENT AUTO 41.9 % (18.4-52.1); MEAN CORPUSCULAR HEMOGLOBIN 33.1 pg (23.9-33.9); MEAN CORPUSCULAR HGB CONC 33.7 g/dL (31.9-34.8); MEAN CORPUSCULAR VOLUME 98.2 fL (76.7-100.5); MEAN PLATELET VOLUME 8.7 fL (7.1-12.4); MONOCYTES ABSOLUTE AUTO 0.3 x10-3/uL (0.3-1.0); MONOCYTES PERCENT AUTO 5.9 % (4.4-15.7); NEUTROPHILS ABSOLUTE AUTO 2.9 x10-3/uL (1.5-6.3); NEUTROPHILS PERCENT AUTO 49.6 % (30.8-76.2); PLATELET COUNT,PLT 207 x10(3)uL (151-488); WHITE BLOOD CELL COUNT,WBC 5.9 x10-3/uL (3.0-10.3)
[2024-09-29 19:10] LABS: BLOOD UREA NITROGEN,BUN 10 mg/dL (7-18); BUN/CREATININE RATIO 14.3 (9-20); CALCIUM 8.7 mg/dL (8.6-10.2); CARBON DIOXIDE,CO2 32 mmol/L (21-32); CHLORIDE,CL 107 mmol/L (100-110); CREATININE 0.7 mg/dL (0.55-1.02); EST CRCL DRUG DOSING (CG) 72.88 mL/min; ESTIMATED GFR 98 mL/min (>60); GLUCOSE RANDOM 78 mg/dL (80-116); POTASSIUM,K 3.3 mmol/L (3.5-5.3); SODIUM,NA 145 mmol/L (135-145)
[2024-09-29 19:11] LABS: APPEARANCE,URINE CLEAR (CLEAR); BACTERIA,URINE FEW (NS); COLOR,URINE YELLOW (YELLOW); RBC,URINE 0-5 (0-5); SQUAMOUS EPITHELIAL CELLS,UR FEW (NS,R,O); WBC,URINE 0-5 (0-5)
[2024-09-29 19:16] LABS: A/G RATIO 0.8; ALANINE AMINOTRANSFERASE,ALT 32 U/L (12-36); ALBUMIN 2.8 g/dL (3.2-4.6); ALKALINE PHOSPHATASE 183 IU/L (56-112); ASPARTATE AMNIOTRANSFERASE,AST 22 IU/L (5-25); BILIRUBIN TOTAL 0.8 mg/dL (0.1-1.3); MAGNESIUM 1.7 mg/dL (1.8-2.5); PROTEIN TOTAL,TP 6.2 g/dL (6.0-8.0)
[2024-09-29 19:18] LABS: TROPONIN I 7.8 pg/mL (4.0-60.3)
[2024-09-29 19:19] LABS: C-REACTIVE PROTEIN < 0.50 mg/dL (<0.50)
[2024-09-29 19:39] LABS: SEDIMENTATION RATE MANUAL 1 mm/hr (0-20)
== END 2024-09-29 22:09 | disposition home or self-care (01) ==
LOC: FB.ED 16:55
DX: S30.1XXA Contusion of abdominal wall, initial encounter (principal); R53.1 Weakness; K21.9 Gastro-esophageal reflux disease without esophagitis; E66.9 Obesity, unspecified; Z86.16 Personal history of COVID-19; Z90.49 Acquired absence of other specified parts of digestive tract; Z96.641 Presence of right artificial hip joint; Z72.0 Tobacco use; Z88.0 Allergy status to penicillin; Z88.2 Allergy status to sulfonamides; Z88.8 Allergy status to other drugs, medicaments and biological substances; Z88.5 Allergy status to narcotic agent; Z91.048 Other nonmedicinal substance allergy status; Z79.51 Long term (current) use of inhaled steroids; Z79.899 Other long term (current) drug therapy; W01.0XXA Fall on same level from slipping, tripping and stumbling without subsequent striking against object, initial encounter; Z68.41 Body mass index [BMI] 40.0-44.9, adult
CPT/HCPCS: 36415; 70450; 74176; 80053; 81001; 83735; 84484; 85025; 85651; 86140; 93005; 99284

== ENCOUNTER 2025-06-07 17:20 | Emergency (ER) | payer MEDICARE, MEDICAID ==
[2025-06-07 17:55] LABS: BASOPHILS ABSOLUTE AUTO 0.0 x10-3/uL (0.0-0.1); BASOPHILS PERCENT AUTO 0.8 % (0.2-1.5); EOSINOPHILS ABSOLUTE AUTO 0.1 x10-3/uL (0.0-0.8); EOSINOPHILS PERCENT AUTO 2.7 % (0.6-8.1); LYMPHOCYTES ABSOLUTE AUTO 1.4 x10-3/uL (1.0-4.4); LYMPHOCYTES PERCENT AUTO 29.9 % (18.4-52.1); MEAN PLATELET VOLUME 7.1 fL (7.1-12.4); MONOCYTES ABSOLUTE AUTO 0.4 x10-3/uL (0.3-1.0); MONOCYTES PERCENT AUTO 7.8 % (4.4-15.7); NEUTROPHILS ABSOLUTE AUTO 2.8 x10-3/uL (1.5-6.3); NEUTROPHILS PERCENT AUTO 58.8 % (30.8-76.2); PLATELET COUNT,PLT 332 x10(3)uL (151-488); RED BLOOD CELL COUNT 3.41 x10(6)uL (3.60-5.20); RED CELL DISTRIBUTION WIDTH 14.5 % (12.3-16.5); WHITE BLOOD CELL COUNT,WBC 4.7 x10-3/uL (3.0-10.3)
[2025-06-07 17:58] LABS: BLOOD UREA NITROGEN,BUN 12 mg/dL (7-18); CARBON DIOXIDE,CO2 31 mmol/L (21-32); CHLORIDE,CL 107 mmol/L (100-110); CREATININE 0.8 mg/dL (0.55-1.02); EST CRCL DRUG DOSING (CG) 62.96 mL/min; ESTIMATED GFR 83 mL/min (>60); GLUCOSE RANDOM 67 mg/dL (80-116); POTASSIUM,K 4.0 mmol/L (3.5-5.3); SODIUM,NA 142 mmol/L (135-145)
[2025-06-07 18:00] LABS: INR 0.98 (1.00-1.24)
[2025-06-07 18:04] LABS: A/G RATIO 0.7; ALANINE AMINOTRANSFERASE,ALT 32 U/L (12-36); ASPARTATE AMNIOTRANSFERASE,AST 20 IU/L (5-25); BILIRUBIN TOTAL 0.5 mg/dL (0.1-1.3); PROTEIN TOTAL,TP 5.4 g/dL (6.0-8.0)
[2025-06-07 18:07] LABS: LACTIC ACID 1.4 mmol/L (0.4-2.0)
[2025-06-07] MEDS ORDERED: Sodium Chloride 0.9% 10 ML Syringe FLUSH PRN (19:14)
[2025-06-07 22:12] VITALS: BP 114/50; PULSE 77
== END 2025-06-07 21:35 ==
LOC: FB.ED 17:20
DX: S22.42XA Multiple fractures of ribs, left side, initial encounter for closed fracture (principal); M97.02XA Periprosthetic fracture around internal prosthetic left hip joint, initial encounter; R29.6 Repeated falls; K21.9 Gastro-esophageal reflux disease without esophagitis; Z90.49 Acquired absence of other specified parts of digestive tract; I50.9 Heart failure, unspecified; F17.210 Nicotine dependence, cigarettes, uncomplicated; Z91.048 Other nonmedicinal substance allergy status; Z88.2 Allergy status to sulfonamides; Z88.0 Allergy status to penicillin; Z88.8 Allergy status to other drugs, medicaments and biological substances; Z88.5 Allergy status to narcotic agent; Z79.899 Other long term (current) drug therapy; W18.39XA Other fall on same level, initial encounter; Y93.89 Activity, other specified
CPT/HCPCS: 36415; 71250; 72192; 80053; 83605; 85025; 85610; 86140; 99285

== ENCOUNTER 2025-06-12 09:37 | Emergency (ER) | payer MEDICARE, MEDICAID ==
[2025-06-12] MEDS: Ketorolac 30 MG/ML SDV IM ONE (10:42)
[2025-06-12 11:03] VITALS: BP 144/68; PULSE 67
== END 2025-06-12 11:30 | disposition home or self-care (01) ==
LOC: FB.ED 09:37
DX: M70.62 Trochanteric bursitis, left hip (principal); I50.9 Heart failure, unspecified; K21.9 Gastro-esophageal reflux disease without esophagitis; Z86.16 Personal history of COVID-19; F17.210 Nicotine dependence, cigarettes, uncomplicated; Z90.49 Acquired absence of other specified parts of digestive tract; Z88.0 Allergy status to penicillin; Z88.2 Allergy status to sulfonamides; Z91.048 Other nonmedicinal substance allergy status; Z88.5 Allergy status to narcotic agent; Z79.899 Other long term (current) drug therapy
CPT/HCPCS: 73502-LT; 96372; 99283; J1885

== ENCOUNTER 2025-06-17 07:19 | Emergency (ER) | payer MEDICARE, MEDICAID ==
[2025-06-17 07:42] LABS: BASOPHILS ABSOLUTE AUTO 0.0 x10-3/uL (0.0-0.1); BASOPHILS PERCENT AUTO 0.0 % (0.2-1.5); EOSINOPHILS ABSOLUTE AUTO 0.0 x10-3/uL (0.0-0.8); EOSINOPHILS PERCENT AUTO 0.0 % (0.6-8.1); LYMPHOCYTES ABSOLUTE AUTO 0.4 x10-3/uL (1.0-4.4); LYMPHOCYTES PERCENT AUTO 5.8 % (18.4-52.1); MEAN PLATELET VOLUME 7.2 fL (7.1-12.4); MONOCYTES ABSOLUTE AUTO 1.1 x10-3/uL (0.3-1.0); MONOCYTES PERCENT AUTO 14.5 % (4.4-15.7); NEUTROPHILS ABSOLUTE AUTO 6.0 x10-3/uL (1.5-6.3); NEUTROPHILS PERCENT AUTO 79.7 % (30.8-76.2); PLATELET COUNT,PLT 315 x10(3)uL (151-488); RED BLOOD CELL COUNT 3.89 x10(6)uL (3.60-5.20); RED CELL DISTRIBUTION WIDTH 13.1 % (12.3-16.5); WHITE BLOOD CELL COUNT,WBC 7.6 x10-3/uL (3.0-10.3)
[2025-06-17 07:53] LABS: BLOOD UREA NITROGEN,BUN 10 mg/dL (7-18); CARBON DIOXIDE,CO2 27 mmol/L (21-32); CHLORIDE,CL 97 mmol/L (100-110); CREATININE 0.7 mg/dL (0.55-1.02); ESTIMATED GFR 98 mL/min (>60); GLUCOSE RANDOM 103 mg/dL (80-116); POTASSIUM,K 3.4 mmol/L (3.5-5.3); SODIUM,NA 132 mmol/L (135-145)
[2025-06-17 07:58] VITALS: BP 130/95; PULSE 79
[2025-06-17 07:59] LABS: A/G RATIO 0.5; ALANINE AMINOTRANSFERASE,ALT 17 U/L (12-36); ASPARTATE AMNIOTRANSFERASE,AST 23 IU/L (5-25); BILIRUBIN TOTAL 1.1 mg/dL (0.1-1.3); PROTEIN TOTAL,TP 6.2 g/dL (6.0-8.0)
[2025-06-17 08:04] LABS: LACTIC ACID 1.0 mmol/L (0.4-2.0)
[2025-06-17] MEDS ORDERED: Iopamidol 755 Mg/ML 100 ML Bottle IV SCH (08:45)
[2025-06-17] MEDS: Ketorolac 30 MG/ML SDV IVPUSH ONE (09:17)
[2025-06-17] MEDS: Sodium Chloride 0.9% 10 ML Syringe FLUSH PRN (09:18)
[2025-06-17] MEDS: VANCOmycin 2 GM/400 ML 2 GM in Premix Bag 1 BAG IV STA (09:23)
[2025-06-17 11:00] LABS: APPEARANCE,URINE CLEAR (CLEAR); GLUCOSE,URINE NORMAL (NORMAL); OCCULT BLOOD,URINE NEGATIVE (NEGATIVE)
[2025-06-17 11:06] LABS: AMPHETAMINES SCREEN, URINE NEGATIVE (NEGATIVE); METHADONE SCREEN, URINE NEGATIVE (NEGATIVE); METHAMPHETAMINE SCREEN, URINE NEGATIVE (NEGATIVE); OXYCODONE SCREEN,URINE NEGATIVE (NEGATIVE)
[2025-06-17 11:07] LABS: BUPRENORPHINE SCREEN,URINE NEGATIVE (NEGATIVE)
[2025-06-18 21:27] LABS: THYROXINE FREE 1.6 ng/dL (0.9-1.7)
== END 2025-06-17 12:30 ==
LOC: FB.ED 07:19
DX: L02.416 Cutaneous abscess of left lower limb (principal); L03.116 Cellulitis of left lower limb; E87.1 Hypo-osmolality and hyponatremia; E87.6 Hypokalemia; K21.9 Gastro-esophageal reflux disease without esophagitis; E66.9 Obesity, unspecified; Z68.36 Body mass index [BMI] 36.0-36.9, adult; Z86.16 Personal history of COVID-19; Z98.84 Bariatric surgery status; Z90.49 Acquired absence of other specified parts of digestive tract; Z88.0 Allergy status to penicillin; Z88.2 Allergy status to sulfonamides; Z88.5 Allergy status to narcotic agent; Z91.048 Other nonmedicinal substance allergy status; Z79.51 Long term (current) use of inhaled steroids; Z79.899 Other long term (current) drug therapy
CPT/HCPCS: 36415; 72193; 80053; 80143; 80179; 80307; 81003; 83605; 84439; 84443; 85025; 86140; 87040; 87077; 87186; 93005; 93010; 96365; 96366; 96375; 99285; J0696; J1885; J3375

== ENCOUNTER 2025-06-26 08:14 | Inpatient (IN) | payer MEDICARE, MEDICAID ==
[2025-06-26] MEDS ORDERED: Triamcinolone Acetonide 0.1% Crm 15 GM Tube TOP PRN (15:20)
[2025-06-26] MEDS: Sodium Chloride 0.9% 10 ML Syringe FLUSH PRN (16:32)
[2025-06-26] MEDS: Sennosides/Docusate Sodium 50-8.6 MG Tab PO SCH (20:09)
[2025-06-27] MEDS: Cyanocobalamin (Vitamin B12) 500 MCG Tab PO SCH (11:30)
[2025-06-29 06:53] LABS: BASOPHILS ABSOLUTE AUTO 0.1 x10-3/uL (0.0-0.1); BASOPHILS PERCENT AUTO 1.1 % (0.2-1.5); EOSINOPHILS ABSOLUTE AUTO 0.1 x10-3/uL (0.0-0.8); EOSINOPHILS PERCENT AUTO 2.9 % (0.6-8.1); LYMPHOCYTES ABSOLUTE AUTO 1.5 x10-3/uL (1.0-4.4); LYMPHOCYTES PERCENT AUTO 30.5 % (18.4-52.1); MEAN PLATELET VOLUME 7.3 fL (7.1-12.4); MONOCYTES ABSOLUTE AUTO 0.4 x10-3/uL (0.3-1.0); MONOCYTES PERCENT AUTO 7.9 % (4.4-15.7); NEUTROPHILS ABSOLUTE AUTO 2.9 x10-3/uL (1.5-6.3); NEUTROPHILS PERCENT AUTO 57.6 % (30.8-76.2); PLATELET COUNT,PLT 466 x10(3)uL (151-488); RED BLOOD CELL COUNT 2.64 x10(6)uL (3.60-5.20); RED CELL DISTRIBUTION WIDTH 14.8 % (12.3-16.5); WHITE BLOOD CELL COUNT,WBC 5.1 x10-3/uL (3.0-10.3)
[2025-06-29 06:59] LABS: CREATININE 0.6 mg/dL (0.55-1.02); EST CRCL DRUG DOSING (CG) 83.95 mL/min; ESTIMATED GFR 101 mL/min (>60)
[2025-06-29 07:16] LABS: ALANINE AMINOTRANSFERASE,ALT < 6 U/L (12-36)
[2025-07-06 06:35] LABS: BASOPHILS ABSOLUTE AUTO 0.0 x10-3/uL (0.0-0.1); BASOPHILS PERCENT AUTO 0.9 % (0.2-1.5); EOSINOPHILS ABSOLUTE AUTO 0.2 x10-3/uL (0.0-0.8); EOSINOPHILS PERCENT AUTO 3.6 % (0.6-8.1); LYMPHOCYTES ABSOLUTE AUTO 0.8 x10-3/uL (1.0-4.4); LYMPHOCYTES PERCENT AUTO 20.3 % (18.4-52.1); MEAN PLATELET VOLUME 7.2 fL (7.1-12.4); MONOCYTES ABSOLUTE AUTO 0.3 x10-3/uL (0.3-1.0); MONOCYTES PERCENT AUTO 6.1 % (4.4-15.7); NEUTROPHILS ABSOLUTE AUTO 2.9 x10-3/uL (1.5-6.3); NEUTROPHILS PERCENT AUTO 69.1 % (30.8-76.2); PLATELET COUNT,PLT 385 x10(3)uL (151-488); RED BLOOD CELL COUNT 3.05 x10(6)uL (3.60-5.20); RED CELL DISTRIBUTION WIDTH 15.2 % (12.3-16.5); WHITE BLOOD CELL COUNT,WBC 4.2 x10-3/uL (3.0-10.3)
[2025-07-06 06:46] LABS: ALANINE AMINOTRANSFERASE,ALT 8.0 U/L (12-36); CREATININE 0.5 mg/dL (0.55-1.02); EST CRCL DRUG DOSING (CG) 100.74 mL/min; ESTIMATED GFR 106.0 mL/min (>60)
[2025-07-06] MEDS: Ondansetron 4 MG Tab.DIS PO ONE (21:14)
[2025-07-06 22:11] LABS: BLOOD UREA NITROGEN,BUN 11 mg/dL (7-18); CARBON DIOXIDE,CO2 27 mmol/L (21-32); CHLORIDE,CL 108 mmol/L (100-110); CREATININE 0.6 mg/dL (0.55-1.02); EST CRCL DRUG DOSING (CG) 83.95 mL/min; ESTIMATED GFR 101 mL/min (>60); GLUCOSE RANDOM 93 mg/dL (80-116); POTASSIUM,K 4.0 mmol/L (3.5-5.3); SODIUM,NA 138 mmol/L (135-145)
[2025-07-06 23:05] LABS: ALANINE AMINOTRANSFERASE,ALT 10.0 U/L (12-36); ASPARTATE AMNIOTRANSFERASE,AST 18.0 IU/L (5-25); BILIRUBIN DIRECT 0.05 mg/dL (0.10-0.20); BILIRUBIN TOTAL 0.2 mg/dL (0.1-1.3); PROTEIN TOTAL,TP 6.3 g/dL (6.0-8.0)
[2025-07-06] MEDS: Iopamidol 755 Mg/ML 100 ML Bottle IV ONE (23:46)
[2025-07-07] MEDS: Levofloxacin/Dextrose 5%-Water 750 MG in Premix Bag 1 BAG IV SCH (06:31)
[2025-07-07 06:39] LABS: PRO B-TYPE NATRIUR PEPT,BNPPRO 366.0 pg/mL (<=125)
[2025-07-08] MEDS: Levofloxacin/Dextrose 5%-Water 750 MG in Premix Bag 1 BAG IV SCH (06:15)
[2025-07-08 21:40] LABS: STREPTOCOCCUS PNEUMONIAE AG,UR Negative (Negative)
[2025-07-09 01:33] LABS: MRSA DETECTION BY PCR Not Detected
[2025-07-09 18:21] LABS: LEGIONELLA PNEUMOPHILA AG,URN Negative (Negative)
[2025-07-13 06:54] LABS: BASOPHILS ABSOLUTE AUTO 0.0 x10-3/uL (0.0-0.1); BASOPHILS PERCENT AUTO 0.9 % (0.2-1.5); EOSINOPHILS ABSOLUTE AUTO 0.2 x10-3/uL (0.0-0.8); EOSINOPHILS PERCENT AUTO 5.0 % (0.6-8.1); LYMPHOCYTES ABSOLUTE AUTO 1.3 x10-3/uL (1.0-4.4); LYMPHOCYTES PERCENT AUTO 29.4 % (18.4-52.1); MEAN PLATELET VOLUME 7.4 fL (7.1-12.4); MONOCYTES ABSOLUTE AUTO 0.3 x10-3/uL (0.3-1.0); MONOCYTES PERCENT AUTO 6.1 % (4.4-15.7); NEUTROPHILS ABSOLUTE AUTO 2.6 x10-3/uL (1.5-6.3); NEUTROPHILS PERCENT AUTO 58.6 % (30.8-76.2); PLATELET COUNT,PLT 451 x10(3)uL (151-488); RED BLOOD CELL COUNT 3.31 x10(6)uL (3.60-5.20); RED CELL DISTRIBUTION WIDTH 15.3 % (12.3-16.5); WHITE BLOOD CELL COUNT,WBC 4.5 x10-3/uL (3.0-10.3)
[2025-07-13 07:13] LABS: ALANINE AMINOTRANSFERASE,ALT 10.0 U/L (12-36); CREATININE 0.6 mg/dL (0.55-1.02); EST CRCL DRUG DOSING (CG) 83.95 mL/min; ESTIMATED GFR 101.0 mL/min (>60)
[2025-07-13] MEDS: Acetaminophen/HYDROcodone 325-7.5 MG Tab PO PRN (17:36)
[2025-07-16] MEDS: Saccharomyces Boulardii (Probiotic) 250 MG Cap PO SCH (08:38)
[2025-07-17] MEDS ORDERED: Sennosides/Docusate Sodium 50-8.6 MG Tab PO PRN (10:00)
[2025-07-20 06:44] LABS: BASOPHILS ABSOLUTE AUTO 0.0 x10-3/uL (0.0-0.1); BASOPHILS PERCENT AUTO 1.1 % (0.2-1.5); EOSINOPHILS ABSOLUTE AUTO 0.2 x10-3/uL (0.0-0.8); EOSINOPHILS PERCENT AUTO 4.1 % (0.6-8.1); LYMPHOCYTES ABSOLUTE AUTO 1.0 x10-3/uL (1.0-4.4); LYMPHOCYTES PERCENT AUTO 27.1 % (18.4-52.1); MEAN PLATELET VOLUME 7.1 fL (7.1-12.4); MONOCYTES ABSOLUTE AUTO 0.2 x10-3/uL (0.3-1.0); MONOCYTES PERCENT AUTO 6.6 % (4.4-15.7); NEUTROPHILS ABSOLUTE AUTO 2.3 x10-3/uL (1.5-6.3); NEUTROPHILS PERCENT AUTO 61.1 % (30.8-76.2); PLATELET COUNT,PLT 302 x10(3)uL (151-488); RED BLOOD CELL COUNT 3.43 x10(6)uL (3.60-5.20); RED CELL DISTRIBUTION WIDTH 15.4 % (12.3-16.5); WHITE BLOOD CELL COUNT,WBC 3.7 x10-3/uL (3.0-10.3)
[2025-07-20 06:48] LABS: CREATININE 0.6 mg/dL (0.55-1.02); EST CRCL DRUG DOSING (CG) 83.95 mL/min; ESTIMATED GFR 101 mL/min (>60)
[2025-07-20 06:52] LABS: ALANINE AMINOTRANSFERASE,ALT < 6 U/L (12-36)
[2025-07-27 06:09] LABS: BASOPHILS ABSOLUTE AUTO 0.0 x10-3/uL (0.0-0.1); BASOPHILS PERCENT AUTO 1.2 % (0.2-1.5); EOSINOPHILS ABSOLUTE AUTO 0.2 x10-3/uL (0.0-0.8); EOSINOPHILS PERCENT AUTO 4.2 % (0.6-8.1); LYMPHOCYTES ABSOLUTE AUTO 1.5 x10-3/uL (1.0-4.4); LYMPHOCYTES PERCENT AUTO 41.6 % (18.4-52.1); MEAN PLATELET VOLUME 7.5 fL (7.1-12.4); MONOCYTES ABSOLUTE AUTO 0.3 x10-3/uL (0.3-1.0); MONOCYTES PERCENT AUTO 8.3 % (4.4-15.7); NEUTROPHILS ABSOLUTE AUTO 1.6 x10-3/uL (1.5-6.3); NEUTROPHILS PERCENT AUTO 44.7 % (30.8-76.2); PLATELET COUNT,PLT 285 x10(3)uL (151-488); RED BLOOD CELL COUNT 3.58 x10(6)uL (3.60-5.20); RED CELL DISTRIBUTION WIDTH 15.4 % (12.3-16.5); WHITE BLOOD CELL COUNT,WBC 3.7 x10-3/uL (3.0-10.3)
[2025-07-27 06:17] LABS: ALANINE AMINOTRANSFERASE,ALT 7.0 U/L (12-36); CREATININE 0.5 mg/dL (0.55-1.02); EST CRCL DRUG DOSING (CG) 100.74 mL/min; ESTIMATED GFR 106.0 mL/min (>60)
[2025-08-01 06:23] LABS: BASOPHILS ABSOLUTE AUTO 0.0 x10-3/uL (0.0-0.1); BASOPHILS PERCENT AUTO 1.0 % (0.2-1.5); EOSINOPHILS ABSOLUTE AUTO 0.2 x10-3/uL (0.0-0.8); EOSINOPHILS PERCENT AUTO 4.3 % (0.6-8.1); LYMPHOCYTES ABSOLUTE AUTO 1.3 x10-3/uL (1.0-4.4); LYMPHOCYTES PERCENT AUTO 33.1 % (18.4-52.1); MEAN PLATELET VOLUME 7.3 fL (7.1-12.4); MONOCYTES ABSOLUTE AUTO 0.3 x10-3/uL (0.3-1.0); MONOCYTES PERCENT AUTO 8.1 % (4.4-15.7); NEUTROPHILS ABSOLUTE AUTO 2.1 x10-3/uL (1.5-6.3); NEUTROPHILS PERCENT AUTO 53.5 % (30.8-76.2); PLATELET COUNT,PLT 284 x10(3)uL (151-488); RED BLOOD CELL COUNT 3.77 x10(6)uL (3.60-5.20); RED CELL DISTRIBUTION WIDTH 15.5 % (12.3-16.5); WHITE BLOOD CELL COUNT,WBC 4.0 x10-3/uL (3.0-10.3)
[2025-08-01 06:27] LABS: BLOOD UREA NITROGEN,BUN 12 mg/dL (7-18); CARBON DIOXIDE,CO2 31 mmol/L (21-32); CHLORIDE,CL 105 mmol/L (100-110); CREATININE 0.5 mg/dL (0.55-1.02); EST CRCL DRUG DOSING (CG) 100.74 mL/min; ESTIMATED GFR 106 mL/min (>60); GLUCOSE RANDOM 114 mg/dL (80-116); POTASSIUM,K 4.3 mmol/L (3.5-5.3); SODIUM,NA 139 mmol/L (135-145)
[2025-08-03 06:39] LABS: BASOPHILS ABSOLUTE AUTO 0.0 x10-3/uL (0.0-0.1); BASOPHILS PERCENT AUTO 0.9 % (0.2-1.5); EOSINOPHILS ABSOLUTE AUTO 0.1 x10-3/uL (0.0-0.8); EOSINOPHILS PERCENT AUTO 3.2 % (0.6-8.1); LYMPHOCYTES ABSOLUTE AUTO 1.2 x10-3/uL (1.0-4.4); LYMPHOCYTES PERCENT AUTO 28.7 % (18.4-52.1); MEAN PLATELET VOLUME 7.6 fL (7.1-12.4); MONOCYTES ABSOLUTE AUTO 0.3 x10-3/uL (0.3-1.0); MONOCYTES PERCENT AUTO 7.1 % (4.4-15.7); NEUTROPHILS ABSOLUTE AUTO 2.5 x10-3/uL (1.5-6.3); NEUTROPHILS PERCENT AUTO 60.1 % (30.8-76.2); PLATELET COUNT,PLT 255 x10(3)uL (151-488); RED BLOOD CELL COUNT 3.73 x10(6)uL (3.60-5.20); RED CELL DISTRIBUTION WIDTH 15.7 % (12.3-16.5); WHITE BLOOD CELL COUNT,WBC 4.2 x10-3/uL (3.0-10.3)
[2025-08-03 06:43] LABS: ALANINE AMINOTRANSFERASE,ALT 22.0 U/L (12-36); CREATININE 0.5 mg/dL (0.55-1.02); EST CRCL DRUG DOSING (CG) 100.74 mL/min; ESTIMATED GFR 106.0 mL/min (>60)
[2025-08-10 06:39] LABS: BASOPHILS ABSOLUTE AUTO 0.0 x10-3/uL (0.0-0.1); BASOPHILS PERCENT AUTO 0.8 % (0.2-1.5); EOSINOPHILS ABSOLUTE AUTO 0.1 x10-3/uL (0.0-0.8); EOSINOPHILS PERCENT AUTO 1.8 % (0.6-8.1); LYMPHOCYTES ABSOLUTE AUTO 1.5 x10-3/uL (1.0-4.4); LYMPHOCYTES PERCENT AUTO 29.7 % (18.4-52.1); MEAN PLATELET VOLUME 7.6 fL (7.1-12.4); MONOCYTES ABSOLUTE AUTO 0.3 x10-3/uL (0.3-1.0); MONOCYTES PERCENT AUTO 6.7 % (4.4-15.7); NEUTROPHILS ABSOLUTE AUTO 3.0 x10-3/uL (1.5-6.3); NEUTROPHILS PERCENT AUTO 61.0 % (30.8-76.2); PLATELET COUNT,PLT 306 x10(3)uL (151-488); RED BLOOD CELL COUNT 4.12 x10(6)uL (3.60-5.20); RED CELL DISTRIBUTION WIDTH 16.2 % (12.3-16.5); WHITE BLOOD CELL COUNT,WBC 4.9 x10-3/uL (3.0-10.3)
[2025-08-10 06:44] LABS: ALANINE AMINOTRANSFERASE,ALT 9.0 U/L (12-36); CREATININE 0.5 mg/dL (0.55-1.02); EST CRCL DRUG DOSING (CG) 100.74 mL/min; ESTIMATED GFR 106.0 mL/min (>60)
[2025-08-12 06:32] VITALS: PULSE 79
[2025-08-12 16:18] VITALS: BP 133/62
== END 2025-08-12 16:55 | disposition home or self-care (01) | DRG 559 ==
LOC: FB.MS 13:55
PROVIDERS: ADMIT Family Medicine; ATTEND Internal Medicine
DX: T84.52XA Infection and inflammatory reaction due to internal left hip prosthesis, initial encounter (principal); J18.9 Pneumonia, unspecified organism; J96.01 Acute respiratory failure with hypoxia; R78.81 Bacteremia; B95.61 Methicillin susceptible Staphylococcus aureus infection as the cause of diseases classified elsewhere; H40.9 Unspecified glaucoma; H54.7 Unspecified visual loss; J44.9 Chronic obstructive pulmonary disease, unspecified; G47.30 Sleep apnea, unspecified; K21.9 Gastro-esophageal reflux disease without esophagitis; M19.90 Unspecified osteoarthritis, unspecified site; G62.9 Polyneuropathy, unspecified; Z96.642 Presence of left artificial hip joint; F41.9 Anxiety disorder, unspecified; F32.A Depression, unspecified; E66.9 Obesity, unspecified; Z90.89 Acquired absence of other organs; Z88.2 Allergy status to sulfonamides; Z88.5 Allergy status to narcotic agent; Z88.0 Allergy status to penicillin; Z91.048 Other nonmedicinal substance allergy status; Z79.899 Other long term (current) drug therapy; Z79.51 Long term (current) use of inhaled steroids; Z79.82 Long term (current) use of aspirin; Z79.891 Long term (current) use of opiate analgesic; Z79.1 Long term (current) use of non-steroidal anti-inflammatories (NSAID); Z87.19 Personal history of other diseases of the digestive system; Z87.442 Personal history of urinary calculi; Z90.49 Acquired absence of other specified parts of digestive tract; Z98.890 Other specified postprocedural states; Z98.891 History of uterine scar from previous surgery; Z98.51 Tubal ligation status; Z68.35 Body mass index [BMI] 35.0-35.9, adult
CPT/HCPCS: 36415; 71275; 73502-26-LT; 73502-LT; 74177; 80048; 80076; 82565; 83690; 83880; 84460; 84484; 85025; 85379; 86140; 87040; 87070; 87205; 87428-QW; 87449; 87641; 87899; 93005; 93010; 93970; 93970-26; 97110-GP; 97116-GP; 97161-GP; 97165-GO; 97530-GO; 97530-GP; 97535-GO; 99305; 99308; 99309; 99315; A9270-GY; J0690; J1642; J1956; Q0162; Q9967